=== PATIENT | female | born 1965 | race Caucasian/White ===

== ENCOUNTER → 2016-08-10 | Outpatient (CLI) | payer MEDICARE, MEDICAID ==
[~2016-08-10] MED LIST: AMIO200T7 PO; AMITRIPTYLINE PO; ATOR20TA PO; BUPR150T73 PO; BUPR200T2 PO; BUSP10TA PO; BUSP15TA PO; CARB200T3 PO; CARBAMEZAPINE PO; CARV3.1212 PO; CHLO25TA4 PO; CYCL10TA50 PO; DEXT10TA7 PO; DIGO125T PO; ENOX60SY4 SQ; ESTR2TAB4 PO; FERR325C PO; FLEXERIL PO; FURO-92 PO; LEVO100T8 PO; LEVO112T4 PO; LISI2.5T PO; LISI5TAB PO; LORA-446 PO; LUBI24CA5 PO; LURA60TA PO; MAGN400C PO; MEDR2.5T PO; OMEP-110 PO; POTA20PA PO; POTA20TA14 PO; POTA20TA6 PO; SERT100T PO; SILO8CAP PO; SPIR25TA3 PO; WARF5TAB PO-COUM
== END | disposition home or self-care (01) ==
LOC: LAB 16:16
PROVIDERS: ATTEND Family Medicine
DX: E03.9 Hypothyroidism, unspecified (principal)
CPT/HCPCS: 36415; 84443

== ENCOUNTER → 2016-10-22 | Outpatient (CLI) | payer MEDICARE, MEDICAID ==
[2016-10-22 11:02] LABS: BLOOD UREA NITROGEN 15 mg/dL (7-18)
[2016-10-22 11:12] LABS: ASPARTATE AMINO TRANSFERASE 17 U/L (15-37)
== END | disposition home or self-care (01) ==
LOC: LAB 10:26
PROVIDERS: ATTEND Family Medicine
DX: I50.9 Heart failure, unspecified (principal); E03.9 Hypothyroidism, unspecified
CPT/HCPCS: 36415; 80053; 84443

== ENCOUNTER 2017-01-31 06:53 | Emergency (ER) | payer MEDICAID, MEDICARE ==
[~2017-01-31] VITALS: Ht 157.5 cm; Wt 54.0 kg
[~2017-01-31 06:53] MED LIST changes: -LUBI24CA5 PO; +LUBI24CA7 PO
[2017-01-31] MEDS ORDERED: SODIUM CHLORIDE 0.9% 1,000ML IVBOLUS ONE (07:30)
[2017-01-31 07:46] LABS: HEMATOCRIT 39.7 % (34.6-47.8); HEMOGLOBIN 13.3 g/dL (11.7-16.4); WHITE BLOOD COUNT 8.1 x10^3/uL (3.4-10)
[2017-01-31 07:59] LABS: ASPARTATE AMINO TRANSFERASE 22 U/L (15-37); BLOOD UREA NITROGEN 14 mg/dL (7-18)
[2017-01-31 08:04] LABS: IS PT STATUS REG ER OR PRE ER? YES
[2017-01-31 10:07] VITALS: BP 152/93
== END 2017-01-31 10:51 | disposition home or self-care (01) ==
LOC: ED 07:53
DX: M94.0 Chondrocostal junction syndrome [Tietze] (principal); J98.01 Acute bronchospasm; M54.9 Dorsalgia, unspecified; G89.29 Other chronic pain; E78.5 Hyperlipidemia, unspecified; E03.9 Hypothyroidism, unspecified; I48.91 Unspecified atrial fibrillation; I10 Essential (primary) hypertension; I45.10 Unspecified right bundle-branch block; Z79.01 Long term (current) use of anticoagulants; Z87.891 Personal history of nicotine dependence
CPT/HCPCS: 36415; 71020; 80053; 84484; 85025; 85610; 93005; 99285; J7030

== ENCOUNTER → 2017-06-17 | Outpatient (CLI) | payer MEDICARE ==
[~2017-06-17] MED LIST changes: +ESTR2TAB PO
[2017-06-17 11:58] LABS: MEAN CORPUSCULAR HEMOGLOBIN 31.3 pg (27.0-34.8); MEAN CORPUSCULAR HGB CONC 33.5 g/dL (32.4-35.8); MEAN CORPUSCULAR VOLUME 93.5 fL (80-100); MEAN PLATELET VOLUME 8.9 fL (7.4-10.4); PLATELET COUNT 323 x10^3/uL (130-400); RED BLOOD COUNT 4.04 x10^6/uL (3.82-5.3); RED CELL DISTRIBUTION WIDTH 13.8 % (9.6-15.2)
[2017-06-17 12:10] LABS: ALANINE AMINOTRANSFERASE 15 U/L (12-78); ALBUMIN 3.9 g/dL (3.4-5.0); ANION GAP 8 mmol/L (5-15); CALCIUM 8.5 mg/dL (8.5-10.1); CHLORIDE 108 mmol/L (98-107); CHOLESTEROL, TOTAL 331 mg/dL (140-239); CREATININE 0.69 mg/dL (0.55-1.02)
[2017-06-17 12:24] LABS: ALKALINE PHOSPHATASE 100 U/L (45-117); BILIRUBIN,TOTAL 0.2 mg/dL (0.2-1.0); CHOL/HDL RATIO 4.7; HDL CHOL % 21 % (28-40); HDL CHOLESTEROL (DIRECT) 71 mg/dL (40-60); LDL CHOLESTEROL,CALCULATED 246 mg/dL (54-169); LDL/HDL RATIO 3.5 (0.5-3.0); TOTAL PROTEIN 7.7 g/dL (6.4-8.2); TRIGLYCERIDES 70 mg/dL (50-200); VLDL CHOLESTEROL 14 mg/dL (0-25)
== END ==
LOC: LAB 11:31
PROVIDERS: ATTEND Internal Medicine Cardiovascular Disease
DX: I48.0 Paroxysmal atrial fibrillation (principal); E78.5 Hyperlipidemia, unspecified; Z79.01 Long term (current) use of anticoagulants
CPT/HCPCS: 36415; 80053; 80061; 80162; 85027

== ENCOUNTER 2017-06-19 08:04 | Emergency (ER) | payer MEDICARE ==
[~2017-06-19] VITALS: Ht 157.5 cm; Wt 54.0 kg
[~2017-06-19 08:04] MED LIST changes: -ESTR2TAB PO
[2017-06-19] MEDS ORDERED: SODIUM CHLORIDE FLUSH 10ML SYR IVF ONE (08:30)
[2017-06-19 08:37] LABS: BASOPHILS # (AUTO) 0.09 x10^3/uL (0-0.1); BASOPHILS % (AUTO) 1 % (0-1); EOSINOPHILS # (AUTO) 0.11 x10^3/uL (0-0.4); EOSINOPHILS % (AUTO) 1 % (1-7); LYMPHOCYTES # (AUTO) 1.56 x10^3/uL (1-3.4); LYMPHOCYTES % (AUTO) 17 % (22-44); MD NO; MEAN CORPUSCULAR HEMOGLOBIN 31.3 pg (27.0-34.8); MEAN CORPUSCULAR HGB CONC 33.8 g/dL (32.4-35.8); MEAN CORPUSCULAR VOLUME 92.8 fL (80-100); MEAN PLATELET VOLUME 8.5 fL (7.4-10.4); MONOCYTES # (AUTO) 0.49 x10^3/uL (0.2-0.8); MONOCYTES % (AUTO) 5 % (2-9); NEUTROPHILS % (AUTO) 76 % (42-75); PLATELET COUNT 324 x10^3/uL (130-400); RED BLOOD COUNT 4.13 x10^6/uL (3.82-5.3); RED CELL DISTRIBUTION WIDTH 13.6 % (9.6-15.2)
[2017-06-19] MEDS ORDERED: MORPHINE SULFATE 4 MG/ML, 1ML ONE ×2 (08:37→09:19)
[2017-06-19] MEDS ORDERED: ONDANSETRON 2MG/ML, 2ML ONE (08:37)
[2017-06-19 08:44] LABS: INTERNATIONAL NORMALIZED RATIO 3.18 (0.93-1.1)
[2017-06-19] MEDS: MORPHINE SULFATE 4 MG/ML, 1ML IVPush PRN ×2 (08:46→09:21)
[2017-06-19 08:47] LABS: ANION GAP 6 mmol/L (5-15); CALCIUM 8.6 mg/dL (8.5-10.1); CHLORIDE 108 mmol/L (98-107); CREATININE 0.74 mg/dL (0.55-1.02)
[2017-06-19 08:50] LABS: TROPONIN I < 0.015 ng/mL (0.000-0.045)
[2017-06-19] MEDS ORDERED: ONDANSETRON 2MG/ML, 2ML IVPush ONE (09:00)
[2017-06-19] MEDS ORDERED: ESTR2TAB PO (10:11)
[2017-06-19] MEDS ORDERED: MEDR2.5T PO (10:11)
[2017-06-19] MEDS ORDERED: LORazepam 2 MG/ML, 1ML IVPush ONE (11:30)
[2017-06-19] MEDS ORDERED: LORazepam 2 MG/ML, 1ML ONE (11:45)
[2017-06-19] MEDS ORDERED: KETOROLAC 30 MG/1 ML ONE (12:24)
[2017-06-19 12:27] LABS: TROPONIN I < 0.015 ng/mL (0.000-0.045)
[2017-06-19] MEDS ORDERED: KETOROLAC 30 MG/1 ML IVPush ONE (12:30)
[2017-06-19] MEDS ORDERED: HYDROcodone/APAP 5/325 TABLET PO ONE (13:30)
[2017-06-19] MEDS ORDERED: HYDROcodone/APAP 5/325 TABLET ONE (13:35)
[2017-06-19 13:45] VITALS: BP 136/78
== END 2017-06-19 13:47 | disposition home or self-care (01) ==
LOC: ED 08:57
DX: F43.0 Acute stress reaction (principal); R07.89 Other chest pain; I25.10 Atherosclerotic heart disease of native coronary artery without angina pectoris; I25.2 Old myocardial infarction; E03.9 Hypothyroidism, unspecified; E78.5 Hyperlipidemia, unspecified; F32.9 Major depressive disorder, single episode, unspecified; F41.9 Anxiety disorder, unspecified; I11.0 Hypertensive heart disease with heart failure; I50.9 Heart failure, unspecified; Z95.2 Presence of prosthetic heart valve; Z95.0 Presence of cardiac pacemaker
CPT/HCPCS: 36415; 71045; 80048; 80162; 82040; 84484; 85025; 85610; 85730; 93005; 93306; 96374; 96375; 99285; J1885; J2060; J2405

== ENCOUNTER 2017-11-20 11:04 | Emergency (ER) | payer MEDICARE, MEDICAID ==
[~2017-11-20] VITALS: Ht 154.9 cm; Wt 55.5 kg
[~2017-11-20 11:04] MED LIST changes: +ESTR2TAB PO; -SPIR25TA3 PO; +SPIR25TA5 PO
[2017-11-20] MEDS ORDERED: ONDANSETRON 2MG/ML, 2ML IVPush ONE (11:30)
[2017-11-20 12:17] LABS: BASOPHILS # (AUTO) 0.05 x10^3/uL (0-0.1); BASOPHILS % (AUTO) 1 % (0-1); EOSINOPHILS # (AUTO) 0.08 x10^3/uL (0-0.4); EOSINOPHILS % (AUTO) 1 % (1-7); LYMPHOCYTES # (AUTO) 1.87 x10^3/uL (1-3.4); LYMPHOCYTES % (AUTO) 23 % (22-44); MD NO; MEAN CORPUSCULAR HEMOGLOBIN 31.5 pg (27.0-34.8); MEAN CORPUSCULAR HGB CONC 33.7 g/dL (32.4-35.8); MEAN CORPUSCULAR VOLUME 93.4 fL (80-100); MEAN PLATELET VOLUME 8.4 fL (7.4-10.4); MONOCYTES # (AUTO) 0.57 x10^3/uL (0.2-0.8); MONOCYTES % (AUTO) 7 % (2-9); NEUTROPHILS # (AUTO) 5.43 x10^3/uL (1.8-6.8); NEUTROPHILS % (AUTO) 68 % (42-75); PLATELET COUNT 290 x10^3/uL (130-400); RED BLOOD COUNT 3.92 x10^6/uL (3.82-5.3); RED CELL DISTRIBUTION WIDTH 13.4 % (9.6-15.2)
[2017-11-20] MEDS ORDERED: MORPHINE SULFATE 4 MG/ML, 1ML ONE ×2 (12:28→13:36)
[2017-11-20 12:29] LABS: ALBUMIN 3.5 g/dL (3.4-5.0); ANION GAP 7 mmol/L (5-15); CALCIUM 8.4 mg/dL (8.5-10.1); CHLORIDE 104 mmol/L (98-107)
[2017-11-20] MEDS ORDERED: ONDANSETRON 2MG/ML, 2ML ONE (12:29)
[2017-11-20 12:34] LABS: ALANINE AMINOTRANSFERASE 23 U/L (12-78); ALKALINE PHOSPHATASE 129 U/L (45-117); BILIRUBIN,TOTAL 0.3 mg/dL (0.2-1.0); CREATININE 0.67 mg/dL (0.55-1.02); TOTAL PROTEIN 7.4 g/dL (6.4-8.2); TROPONIN I < 0.015 ng/mL (0.000-0.045)
[2017-11-20] MEDS: MORPHINE SULFATE 4 MG/ML, 1ML IVPush PRN ×2 (12:34→13:38)
[2017-11-20 12:50] VITALS: BP 166/61
[2017-11-20] MEDS ORDERED: BUPR-173 PO (12:58)
[2017-11-20] MEDS ORDERED: CALC-192 PO (12:58)
[2017-11-20] MEDS ORDERED: METOPROLOL TARTRATE 25 MG TABLET ONE (13:22)
[2017-11-20] MEDS ORDERED: METOPROLOL TARTRATE 50 MG TABLET PO ONE (13:30)
== END 2017-11-20 14:23 | disposition home or self-care (01) ==
LOC: ED 14:17
DX: I49.3 Ventricular premature depolarization (principal); R07.89 Other chest pain; I48.91 Unspecified atrial fibrillation; E03.9 Hypothyroidism, unspecified; I10 Essential (primary) hypertension; Z79.01 Long term (current) use of anticoagulants
CPT/HCPCS: 36415; 71045; 80053; 83605; 84484; 85025; 93005; 96374; 96375; 96376; 99285; J2405

== ENCOUNTER 2017-11-27 07:41 | Inpatient (IN) | payer MEDICARE, MEDICAID ==
[~2017-11-27] VITALS: Ht 157.5 cm; Wt 68.8 kg
[~2017-11-27 07:41] MED LIST changes: +BUPR-173 PO; +CALC-192 PO
[2017-11-27] MEDS ORDERED: SODIUM CHLORIDE FLUSH 10ML SYR IVF ONE (08:00)
[2017-11-27] MEDS ORDERED: MORPHINE SULFATE 4 MG/ML, 1ML ONE ×2 (08:18→08:54)
[2017-11-27] MEDS: MORPHINE SULFATE 4 MG/ML, 1ML IVPush PRN ×4 (08:19→20:38)
[2017-11-27 08:28] LABS: BASOPHILS # (AUTO) 0.08 x10^3/uL (0-0.1); BASOPHILS % (AUTO) 1 % (0-1); EOSINOPHILS # (AUTO) 0.13 x10^3/uL (0-0.4); EOSINOPHILS % (AUTO) 2 % (1-7); LYMPHOCYTES # (AUTO) 2.01 x10^3/uL (1-3.4); LYMPHOCYTES % (AUTO) 25 % (22-44); MD NO; MEAN CORPUSCULAR HEMOGLOBIN 30.9 pg (27.0-34.8); MEAN CORPUSCULAR HGB CONC 33.5 g/dL (32.4-35.8); MEAN CORPUSCULAR VOLUME 92.3 fL (80-100); MEAN PLATELET VOLUME 8.6 fL (7.4-10.4); MONOCYTES # (AUTO) 0.51 x10^3/uL (0.2-0.8); MONOCYTES % (AUTO) 6 % (2-9); NEUTROPHILS # (AUTO) 5.27 x10^3/uL (1.8-6.8); NEUTROPHILS % (AUTO) 66 % (42-75); PLATELET COUNT 309 x10^3/uL (130-400); RED BLOOD COUNT 3.78 x10^6/uL (3.82-5.3); RED CELL DISTRIBUTION WIDTH 13.8 % (9.6-15.2)
[2017-11-27] MEDS ORDERED: ONDANSETRON 2MG/ML, 2ML IVPush ONE (08:30)
[2017-11-27 08:38] LABS: INTERNATIONAL NORMALIZED RATIO 4.28 (0.93-1.1); PROTHROMBIN TIME 42.8 Seconds (9.6-11.5)
[2017-11-27 08:39] LABS: ALANINE AMINOTRANSFERASE 18 U/L (12-78); ALBUMIN 3.2 g/dL (3.4-5.0); ANION GAP 4 mmol/L (5-15); CHLORIDE 110 mmol/L (98-107); CREATININE 0.65 mg/dL (0.55-1.02)
[2017-11-27 08:43] LABS: ALKALINE PHOSPHATASE 128 U/L (45-117); TOTAL PROTEIN 6.7 g/dL (6.4-8.2); TROPONIN I < 0.015 ng/mL (0.000-0.045)
[2017-11-27] MEDS ORDERED: ONDANSETRON 2MG/ML, 2ML ONE (08:54)
[2017-11-27 08:57] LABS: BILIRUBIN,TOTAL < 0.1 mg/dL (0.2-1.0)
[2017-11-27] MEDS ORDERED: SODIUM CHLORIDE FLUSH 10ML SYR IVF PRN (10:00)
[2017-11-27] MEDS ORDERED: hydrALAzine 20 MG/ML, 1ML IVPush PRN (10:30)
[2017-11-27] MEDS: PANTOPROZOLE 40MG TABLET PO SCH (10:30)
[2017-11-27] MEDS ORDERED: NITROGLYCERIN 0.4 MG BOTTLE (25 TABS) SL PRN (10:30)
[2017-11-27] MEDS: MEDROXYPROGESTERONE ACETATE 2.5 MG TABLET PO SCH (10:30)
[2017-11-27] MEDS ORDERED: POLYETHYLENE GLYCOL 17 GM PACKET PO PRN (10:30)
[2017-11-27] MEDS ORDERED: TEMAZEPAM 15 MG CAPSULE PO PRN (10:30)
[2017-11-27] MEDS: LUBIPROSTONE 24 MCG CAPSULE PO SCH ×2 (10:30→20:37)
[2017-11-27] MEDS ORDERED: ACETAMINOPHEN 325 MG TABLET PO PRN (10:30)
[2017-11-27 11:03] VITALS: BP 142/97
[2017-11-27] MEDS: HYDROcodone/APAP 5/325 TABLET PO PRN ×2 (11:51→20:35)
[2017-11-27] MEDS: BUPROPION 100 MG TABLET PO SCH (11:51)
[2017-11-27] MEDS: CARVEDILOL 3.125 MG TABLET PO SCH ×2 (11:51→20:37)
[2017-11-27] MEDS: POTASSIUM CHLORIDE 20 MEQ TAB.ER.PRT PO SCH ×2 (11:52→20:31)
[2017-11-27] MEDS: AMIODARONE 200 MG TABLET PO SCH (11:52)
[2017-11-27] MEDS: FUROSEMIDE 40 MG TABLET PO SCH (11:52)
[2017-11-27] MEDS: DIGOXIN 0.125 MG TABLET PO SCH (11:53)
[2017-11-27] MEDS: CARBAMAZEPINE 200 MG TABLET PO SCH ×2 (11:54→20:35)
[2017-11-27] MEDS: ESTRADIOL 2 MG TABLET PO SCH (12:01)
[2017-11-27] MEDS: SPIRONOLACTONE 25 MG TABLET PO SCH (12:01)
[2017-11-27] MEDS: LEVOTHYROXINE 112 MCG TABLET PO SCH (12:01)
[2017-11-27] MEDS: SERTRALINE 100MG TABLET PO SCH ×2 (12:02→20:36)
[2017-11-27] MEDS: ENOXAPARIN 40 MG/0.4 ML SQ SCH (12:04)
[2017-11-27] MEDS: ONDANSETRON 2MG/ML, 2ML IVPush PRN ×2 (15:05→20:37)
[2017-11-27] MEDS: LISINOPRIL 5 MG TABLET PO SCH (20:36)
[2017-11-27] MEDS: LURASIDONE HCL 60 MG HOMEMEDPO SCH (21:00)
[2017-11-27] MEDS ORDERED: MAGNESIUM OXIDE 400 MG TABLET PO SCH (21:00)
[2017-11-27] MEDS ORDERED: FERROUS SULFATE 325 MG TABLET PO SCH (21:00)
[2017-11-27] MEDS ORDERED: CALCIUM/VITAMIN D3 250-125 TABLET PO SCH (21:00)
[2017-11-27 21:12] LABS: TROPONIN I < 0.015 ng/mL (0.000-0.045)
[2017-11-27 21:50] VITALS: BP 123/86
[2017-11-27 22:18] LABS: MICROSCOPIC INDICATED
[2017-11-27 22:25] LABS: CULTURE INDICATED? YES
[2017-11-27 22:58] LABS: AMPHETAMINE SCREEN, URINE Negative (Negative); BARBITURATE SCREEN, URINE Negative (Negative); BENZODIAZEPINE SCREEN, URINE Negative (Negative); CANNABINOID SCREEN, URINE Positive (Negative); COCAINE SCREEN, URINE Negative (Negative); METHADONE SCREEN, URINE Negative (Negative); OPIATE SCREEN, URINE Positive (Negative)
[2017-11-28 00:58] VITALS: BP 104/72
[2017-11-28] MEDS: HYDROcodone/APAP 5/325 TABLET PO PRN ×2 (01:02→03:09)
[2017-11-28] MEDS: ONDANSETRON 2MG/ML, 2ML IVPush PRN ×2 (03:13→10:23)
[2017-11-28 04:42] LABS: INTERNATIONAL NORMALIZED RATIO 4.38 (0.93-1.1); PROTHROMBIN TIME 43.8 Seconds (9.6-11.5)
[2017-11-28 04:43] LABS: TROPONIN I < 0.015 ng/mL (0.000-0.045)
[2017-11-28] MEDS: LEVOTHYROXINE 112 MCG TABLET PO SCH (06:01)
[2017-11-28] MEDS: PANTOPROZOLE 40MG TABLET PO SCH (07:30)
[2017-11-28 07:42] VITALS: BP 113/78
[2017-11-28] MEDS ORDERED: REGADENOSON 0.4 MG/5 ML SYRINGE ONE (08:27)
[2017-11-28] MEDS: LURASIDONE HCL 60 MG HOMEMEDPO SCH (10:17)
[2017-11-28] MEDS: MORPHINE SULFATE 4 MG/ML, 1ML IVPush PRN ×2 (10:23→13:33)
[2017-11-28] MEDS: ENOXAPARIN 40 MG/0.4 ML SQ SCH (10:30)
[2017-11-28 10:43] VITALS: BP 145/87
[2017-11-28] MEDS: SERTRALINE 100MG TABLET PO SCH (10:47)
[2017-11-28] MEDS: POTASSIUM CHLORIDE 20 MEQ TAB.ER.PRT PO SCH ×3 (10:47→16:56)
[2017-11-28] MEDS: FUROSEMIDE 40 MG TABLET PO SCH (10:47)
[2017-11-28] MEDS: DIGOXIN 0.125 MG TABLET PO SCH (10:47)
[2017-11-28] MEDS: LISINOPRIL 5 MG TABLET PO SCH (10:48)
[2017-11-28] MEDS: AMIODARONE 200 MG TABLET PO SCH (10:48)
[2017-11-28] MEDS: MEDROXYPROGESTERONE ACETATE 2.5 MG TABLET PO SCH (10:48)
[2017-11-28] MEDS: BUPROPION 100 MG TABLET PO SCH (10:48)
[2017-11-28] MEDS: SPIRONOLACTONE 25 MG TABLET PO SCH (10:48)
[2017-11-28] MEDS: CARVEDILOL 3.125 MG TABLET PO SCH (10:48)
[2017-11-28] MEDS: CARBAMAZEPINE 200 MG TABLET PO SCH (10:48)
[2017-11-28] MEDS: ESTRADIOL 2 MG TABLET PO SCH (10:49)
[2017-11-28] MEDS: LUBIPROSTONE 24 MCG CAPSULE PO SCH (10:51)
[2017-11-28] MEDS ORDERED: IBUP-1221 PO (12:41)
[2017-11-28] MEDS ORDERED: SIMV40TA PO (12:48)
[2017-11-28] MEDS ORDERED: EZET10TA18 PO (12:54)
[2017-11-28 13:15] VITALS: BP 170/109
== END 2017-11-28 16:38 | disposition home or self-care (01) | DRG 313 ==
LOC: ED 08:04 → SUATTDRO 09:55 → 5SO 10:29 → DCLOUNGE 11-28 16:18
PROVIDERS: ADMIT Internal Medicine; ATTEND Internal Medicine
DX: R07.89 Other chest pain (principal); I50.32 Chronic diastolic (congestive) heart failure; J96.10 Chronic respiratory failure, unspecified whether with hypoxia or hypercapnia; E03.9 Hypothyroidism, unspecified; I11.0 Hypertensive heart disease with heart failure; I27.20 Pulmonary hypertension, unspecified; I48.0 Paroxysmal atrial fibrillation; K21.9 Gastro-esophageal reflux disease without esophagitis; R79.1 Abnormal coagulation profile; M79.7 Fibromyalgia; K58.9 Irritable bowel syndrome, unspecified; G25.81 Restless legs syndrome; E78.5 Hyperlipidemia, unspecified; F41.9 Anxiety disorder, unspecified; F32.9 Major depressive disorder, single episode, unspecified; Z80.3 Family history of malignant neoplasm of breast; Z90.710 Acquired absence of both cervix and uterus; Z79.01 Long term (current) use of anticoagulants; Z95.0 Presence of cardiac pacemaker; Z95.2 Presence of prosthetic heart valve; Z88.1 Allergy status to other antibiotic agents; Z88.2 Allergy status to sulfonamides; Z88.8 Allergy status to other drugs, medicaments and biological substances
CPT/HCPCS: 36415; 71045; 78452; 80053; 80307; 81001; 83880; 84443; 84484; 85025; 85610; 85730; 87086; 93005; 93017; 96374; 96375; 96376; J1650; J2405; J2785; A9502; C9898

== ENCOUNTER 2017-12-02 16:48 | Inpatient (IN) | payer MEDICARE, MEDICAID ==
[~2017-12-02] VITALS: Ht 157.5 cm; Wt 58.4 kg
[~2017-12-02 16:48] MED LIST changes: +EZET10TA18 PO; +IBUP-1221 PO; -POTA20PA PO; +POTA20PA31 PO; -SILO8CAP PO; +SILO8CAP2 PO; +SIMV40TA PO
[2017-12-02] MEDS ORDERED: PLEASE ENTER HEIGHT AND WEIGHT MC SCH (17:30)
[2017-12-02 17:32] VITALS: BP 159/75
[2017-12-02 18:31] LABS: BASOPHILS # (AUTO) 0.06 x10^3/uL (0-0.1); BASOPHILS % (AUTO) 1 % (0-1); EOSINOPHILS # (AUTO) 0.07 x10^3/uL (0-0.4); EOSINOPHILS % (AUTO) 1 % (1-7); LYMPHOCYTES # (AUTO) 2.42 x10^3/uL (1-3.4); LYMPHOCYTES % (AUTO) 23 % (22-44); MD NO; MEAN CORPUSCULAR HEMOGLOBIN 31.6 pg (27.0-34.8); MEAN CORPUSCULAR VOLUME 92.9 fL (80-100); MEAN PLATELET VOLUME 8.4 fL (7.4-10.4); MONOCYTES # (AUTO) 0.72 x10^3/uL (0.2-0.8); MONOCYTES % (AUTO) 7 % (2-9); NEUTROPHILS # (AUTO) 7.49 x10^3/uL (1.8-6.8); NEUTROPHILS % (AUTO) 70 % (42-75); PLATELET COUNT 310 x10^3/uL (130-400); RED BLOOD COUNT 4.19 x10^6/uL (3.82-5.3); RED CELL DISTRIBUTION WIDTH 13.9 % (9.6-15.2)
[2017-12-02 18:37] VITALS: BP 147/94
[2017-12-02] MEDS: ONDANSETRON 2MG/ML, 2ML IV PRN (18:47)
[2017-12-02 18:51] LABS: FREE T4 (FREE THYROXINE) 1.54 ng/dL (0.76-1.46); THYROID STIMULATING HORMONE 1.58 mIU/L (0.358-3.740)
[2017-12-02] MEDS ORDERED: ACETAMINOPHEN 325 MG TABLET PO PRN (19:00)
[2017-12-02] MEDS ORDERED: AMIODARONE 150 MG in DEXTROSE 5% 100 ML IV ONE (19:00)
[2017-12-02] MEDS ORDERED: AMIODARONE 900 MG in DEXTROSE 5% 482 ML IV PRN (19:00)
[2017-12-02] MEDS ORDERED: FILTER 0.22 MICRON IV PRN (19:00)
[2017-12-02] MEDS ORDERED: LORazepam 1MG TABLET PO PRN (19:00)
[2017-12-02 19:43] VITALS: BP 135/80
[2017-12-02] MEDS ORDERED: GLUCAGON 1 MG IM PRN (20:30)
[2017-12-02] MEDS ORDERED: DEXTROSE 50%, 50ML SYRINGE IVPush PRN (20:30)
[2017-12-02] MEDS ORDERED: DEXTROSE 4 GM TAB.CHEW PO PRN (20:30)
[2017-12-02 20:51] LABS: INTERNATIONAL NORMALIZED RATIO 3.64 (0.93-1.1); PROTHROMBIN TIME 36.6 Seconds (9.6-11.5)
[2017-12-02] MEDS: BUSPIRONE 5 MG TABLET PO SCH (20:51)
[2017-12-02] MEDS: SERTRALINE 100MG TABLET PO SCH (20:51)
[2017-12-02] MEDS: CYCLOBENZAPRINE 10 MG TABLET PO SCH (20:51)
[2017-12-02] MEDS: LUBIPROSTONE 24 MCG CAPSULE PO SCH (20:51)
[2017-12-02] MEDS: SODIUM CHLORIDE FLUSH 10ML SYR IVF SCH (20:51)
[2017-12-02] MEDS ORDERED: KETOROLAC 30 MG/1 ML IVPush ONE (21:00)
[2017-12-02] MEDS: DOCUSATE 100 MG CAPSULE PO PRN (21:01)
[2017-12-02] MEDS: MORPHINE SULFATE 4 MG/ML, 1ML IVPush PRN (23:57)
[2017-12-03 00:35] VITALS: BP 125/78
[2017-12-03] MEDS: MORPHINE SULFATE 4 MG/ML, 1ML IVPush PRN ×5 (04:18→21:55)
[2017-12-03] MEDS: ONDANSETRON 2MG/ML, 2ML IV PRN (04:18)
[2017-12-03 05:17] LABS: ANION GAP 5 mmol/L (5-15); CALCIUM 8.6 mg/dL (8.5-10.1); CHLORIDE 105 mmol/L (98-107); CREATININE 0.76 mg/dL (0.55-1.02)
[2017-12-03] MEDS: CARVEDILOL 6.25 MG TABLET PO SCH ×2 (06:34→16:51)
[2017-12-03] MEDS: LEVOTHYROXINE 125 MCG TABLET PO SCH (06:35)
[2017-12-03 07:17] VITALS: BP 121/76
[2017-12-03] MEDS: SPIRONOLACTONE 25 MG TABLET PO SCH (08:14)
[2017-12-03] MEDS: LURASIDONE 20 MG TABLET PO SCH (08:14)
[2017-12-03] MEDS: ESTRADIOL 2 MG TABLET PO SCH (08:14)
[2017-12-03] MEDS: POTASSIUM CHLORIDE 20 MEQ TAB.ER.PRT PO SCH (08:14)
[2017-12-03] MEDS: DIGOXIN 0.125 MG TABLET PO SCH (08:15)
[2017-12-03] MEDS: FUROSEMIDE 40 MG TABLET PO SCH (08:15)
[2017-12-03] MEDS: SERTRALINE 100MG TABLET PO SCH ×2 (08:16→21:55)
[2017-12-03] MEDS: BUPROPION SR 100 MG TABLET PO SCH (08:16)
[2017-12-03] MEDS: MAGNESIUM OXIDE 400 MG TABLET PO SCH (08:22)
[2017-12-03] MEDS: BUSPIRONE 5 MG TABLET PO SCH ×2 (08:22→21:55)
[2017-12-03] MEDS: LUBIPROSTONE 24 MCG CAPSULE PO SCH ×2 (08:23→21:55)
[2017-12-03] MEDS: SODIUM CHLORIDE FLUSH 10ML SYR IVF SCH ×2 (08:23→21:56)
[2017-12-03] MEDS: ONDANSETRON ODT 4 MG PO PRN (13:00)
[2017-12-03 14:15] VITALS: BP 108/71
[2017-12-03] MEDS ORDERED: WARFARIN 5 MG TABLET PO-COUM SCH (18:00)
[2017-12-03 18:34] VITALS: BP 123/80
[2017-12-03] MEDS ORDERED: AMIODARONE 200 MG TABLET PO SCH (21:00)
[2017-12-03] MEDS: LORazepam 1MG TABLET PO SCH (21:54)
[2017-12-03] MEDS: CYCLOBENZAPRINE 10 MG TABLET PO SCH (21:55)
[2017-12-04 00:43] VITALS: BP 103/67
[2017-12-04 04:59] VITALS: BP 107/68
[2017-12-04] MEDS: LEVOTHYROXINE 125 MCG TABLET PO SCH (05:00)
[2017-12-04] MEDS: CARVEDILOL 6.25 MG TABLET PO SCH ×2 (05:01→17:38)
[2017-12-04] MEDS: DOCUSATE 100 MG CAPSULE PO PRN ×2 (05:01→22:04)
[2017-12-04] MEDS: MORPHINE SULFATE 4 MG/ML, 1ML IVPush PRN ×5 (05:01→22:05)
[2017-12-04] MEDS: ONDANSETRON 2MG/ML, 2ML IV PRN ×2 (05:12→17:41)
[2017-12-04 05:37] LABS: INTERNATIONAL NORMALIZED RATIO 1.61 (0.93-1.1); PROTHROMBIN TIME 16.6 Seconds (9.6-11.5)
[2017-12-04 06:47] VITALS: BP 102/68
[2017-12-04] MEDS ORDERED: HEPARIN 5,000 UNITS/ML, 1ML IV ONE (07:30)
[2017-12-04] MEDS ORDERED: HEPARIN 5,000 UNITS/ML, 1ML IV PRN (07:30)
[2017-12-04] MEDS: HEPARIN 25,000 UNITS/500ML PMX 500 ML IV PRN (07:49)
[2017-12-04] MEDS: LUBIPROSTONE 24 MCG CAPSULE PO SCH ×2 (09:00→20:31)
[2017-12-04] MEDS: AMIODARONE 200 MG TABLET PO SCH (09:00)
[2017-12-04] MEDS: ESTRADIOL 2 MG TABLET PO SCH (09:20)
[2017-12-04] MEDS: LURASIDONE 20 MG TABLET PO SCH (09:20)
[2017-12-04] MEDS: SERTRALINE 100MG TABLET PO SCH ×2 (09:21→20:31)
[2017-12-04] MEDS: BUPROPION SR 100 MG TABLET PO SCH (09:21)
[2017-12-04] MEDS: BUSPIRONE 5 MG TABLET PO SCH ×2 (09:21→20:32)
[2017-12-04] MEDS: SPIRONOLACTONE 25 MG TABLET PO SCH (09:21)
[2017-12-04] MEDS: DIGOXIN 0.125 MG TABLET PO SCH (09:21)
[2017-12-04] MEDS: MAGNESIUM OXIDE 400 MG TABLET PO SCH (09:22)
[2017-12-04] MEDS: POTASSIUM CHLORIDE 20 MEQ TAB.ER.PRT PO SCH (09:22)
[2017-12-04] MEDS: FUROSEMIDE 40 MG TABLET PO SCH (09:22)
[2017-12-04] MEDS: SODIUM CHLORIDE FLUSH 10ML SYR IVF SCH ×2 (09:30→21:00)
[2017-12-04] MEDS: ONDANSETRON ODT 4 MG PO PRN (13:07)
[2017-12-04 13:32] VITALS: BP 111/74
[2017-12-04] MEDS ORDERED: WARFARIN 7.5 MG TABLET PO-COUM SCH (18:00)
[2017-12-04 18:46] VITALS: BP 125/82
[2017-12-04] MEDS: LORazepam 1MG TABLET PO SCH (20:31)
[2017-12-04] MEDS: CYCLOBENZAPRINE 10 MG TABLET PO SCH (20:31)
[2017-12-05 02:00] VITALS: BP 108/70
[2017-12-05 02:08] LABS: INTERNATIONAL NORMALIZED RATIO 1.12 (0.93-1.1); PROTHROMBIN TIME 11.6 Seconds (9.6-11.5)
[2017-12-05] MEDS: MORPHINE SULFATE 4 MG/ML, 1ML IVPush PRN ×6 (02:21→21:42)
[2017-12-05] MEDS: ONDANSETRON 2MG/ML, 2ML IV PRN ×4 (02:39→21:38)
[2017-12-05] MEDS: CARVEDILOL 6.25 MG TABLET PO SCH ×2 (05:59→18:12)
[2017-12-05] MEDS: LEVOTHYROXINE 125 MCG TABLET PO SCH (05:59)
[2017-12-05 06:30] VITALS: BP 115/76
[2017-12-05] MEDS: AMIODARONE 200 MG TABLET PO SCH (08:58)
[2017-12-05] MEDS: FUROSEMIDE 40 MG TABLET PO SCH (08:59)
[2017-12-05] MEDS: ESTRADIOL 2 MG TABLET PO SCH (08:59)
[2017-12-05] MEDS: LUBIPROSTONE 24 MCG CAPSULE PO SCH ×2 (08:59→21:37)
[2017-12-05] MEDS: DIGOXIN 0.125 MG TABLET PO SCH (08:59)
[2017-12-05] MEDS: SPIRONOLACTONE 25 MG TABLET PO SCH (08:59)
[2017-12-05] MEDS: SERTRALINE 100MG TABLET PO SCH ×2 (08:59→21:38)
[2017-12-05] MEDS: BUSPIRONE 5 MG TABLET PO SCH ×2 (08:59→21:38)
[2017-12-05] MEDS: MAGNESIUM OXIDE 400 MG TABLET PO SCH (09:00)
[2017-12-05] MEDS: BUPROPION SR 100 MG TABLET PO SCH (09:00)
[2017-12-05] MEDS: POTASSIUM CHLORIDE 20 MEQ TAB.ER.PRT PO SCH (09:00)
[2017-12-05] MEDS: LURASIDONE 20 MG TABLET PO SCH (09:00)
[2017-12-05] MEDS: SODIUM CHLORIDE FLUSH 10ML SYR IVF SCH ×2 (09:05→21:37)
[2017-12-05 10:45] VITALS: BP 108/72
[2017-12-05 12:37] VITALS: BP 133/87
[2017-12-05] MEDS ORDERED: MIDAZOLAM 1 MG/ML, 2ML ONE ×3 (13:03→14:06)
[2017-12-05] MEDS ORDERED: FENTANYL PF 100 MCG/2ML ONE ×2 (13:03→14:06)
[2017-12-05] MEDS ORDERED: CEFAZOLIN PMX 1GM/50ML 50 ML ONE (13:03)
[2017-12-05] MEDS ORDERED: LIDOCAINE 2%, 50ML ONE (13:03)
[2017-12-05] MEDS ORDERED: CEFAZOLIN 1,000 MG ONE (13:04)
[2017-12-05] MEDS ORDERED: DIPHENHYDRAMINE 50 MG/ML, 1ML ONE (13:08)
[2017-12-05] MEDS ORDERED: HOLD MEDICATION MC PRN (15:00)
[2017-12-05] MEDS ORDERED: WARFARIN 2.5 MG TABLET PO-COUM ONE (18:00)
[2017-12-05 18:50] VITALS: BP 134/81
[2017-12-05] MEDS: LORazepam 1MG TABLET PO SCH (21:37)
[2017-12-05] MEDS: CYCLOBENZAPRINE 10 MG TABLET PO SCH (21:38)
[2017-12-05] MEDS: CEFAZOLIN PMX 1GM/50ML 50 ML IVPB SCH (21:51)
[2017-12-06] MEDS: MORPHINE SULFATE 4 MG/ML, 1ML IVPush PRN ×8 (00:42→23:05)
[2017-12-06 03:34] VITALS: BP 124/86
[2017-12-06] MEDS: CEFAZOLIN PMX 1GM/50ML 50 ML IVPB SCH (05:41)
[2017-12-06 05:52] LABS: INTERNATIONAL NORMALIZED RATIO 1.05 (0.93-1.1); PROTHROMBIN TIME 10.8 Seconds (9.6-11.5)
[2017-12-06 05:59] VITALS: BP 138/90
[2017-12-06] MEDS: LEVOTHYROXINE 125 MCG TABLET PO SCH (06:01)
[2017-12-06] MEDS: CARVEDILOL 6.25 MG TABLET PO SCH ×2 (06:01→17:58)
[2017-12-06] MEDS: HEPARIN 25,000 UNITS/500ML PMX 500 ML IV PRN (06:11)
[2017-12-06] MEDS: ONDANSETRON 2MG/ML, 2ML IV PRN ×2 (06:35→20:05)
[2017-12-06 06:55] VITALS: BP 120/79
[2017-12-06 07:45] VITALS: BP 176/71
[2017-12-06] MEDS: SODIUM CHLORIDE FLUSH 10ML SYR IVF SCH ×2 (09:00→20:04)
[2017-12-06] MEDS: FUROSEMIDE 40 MG TABLET PO SCH (09:45)
[2017-12-06] MEDS: LURASIDONE 20 MG TABLET PO SCH (09:45)
[2017-12-06] MEDS: BUSPIRONE 5 MG TABLET PO SCH ×2 (09:45→20:05)
[2017-12-06] MEDS: ESTRADIOL 2 MG TABLET PO SCH (09:45)
[2017-12-06] MEDS: MAGNESIUM OXIDE 400 MG TABLET PO SCH (09:46)
[2017-12-06] MEDS: LUBIPROSTONE 24 MCG CAPSULE PO SCH ×2 (09:46→20:04)
[2017-12-06] MEDS: SERTRALINE 100MG TABLET PO SCH ×2 (09:46→20:05)
[2017-12-06] MEDS: POTASSIUM CHLORIDE 20 MEQ TAB.ER.PRT PO SCH (09:46)
[2017-12-06] MEDS: BUPROPION SR 100 MG TABLET PO SCH (09:46)
[2017-12-06] MEDS: DIGOXIN 0.125 MG TABLET PO SCH (09:46)
[2017-12-06] MEDS: AMIODARONE 200 MG TABLET PO SCH (09:47)
[2017-12-06] MEDS: SPIRONOLACTONE 25 MG TABLET PO SCH (09:52)
[2017-12-06 12:47] VITALS: BP 110/72
[2017-12-06] MEDS ORDERED: morphine SULFATE 10 MG/ML, 1ML ONE (12:48)
[2017-12-06] MEDS: WARFARIN 5 MG TABLET PO-COUM SCH (17:59)
[2017-12-06 18:38] VITALS: BP 111/74
[2017-12-06] MEDS: LORazepam 1MG TABLET PO SCH (20:04)
[2017-12-06] MEDS: CYCLOBENZAPRINE 10 MG TABLET PO SCH (20:05)
[2017-12-07 01:52] VITALS: BP 126/84
[2017-12-07] MEDS: MORPHINE SULFATE 4 MG/ML, 1ML IVPush PRN ×3 (02:08→08:52)
[2017-12-07 05:42] LABS: INTERNATIONAL NORMALIZED RATIO 1.17 (0.93-1.1)
[2017-12-07 06:35] VITALS: BP 129/86
[2017-12-07] MEDS: CARVEDILOL 6.25 MG TABLET PO SCH ×2 (06:37→17:28)
[2017-12-07] MEDS: LEVOTHYROXINE 125 MCG TABLET PO SCH (06:38)
[2017-12-07 07:13] VITALS: BP 123/76
[2017-12-07] MEDS: LURASIDONE 20 MG TABLET PO SCH (08:48)
[2017-12-07] MEDS: BUSPIRONE 5 MG TABLET PO SCH ×2 (08:49→21:11)
[2017-12-07] MEDS: POTASSIUM CHLORIDE 20 MEQ TAB.ER.PRT PO SCH (08:49)
[2017-12-07] MEDS: FUROSEMIDE 40 MG TABLET PO SCH (08:49)
[2017-12-07] MEDS: SERTRALINE 100MG TABLET PO SCH ×2 (08:50→21:12)
[2017-12-07] MEDS: SPIRONOLACTONE 25 MG TABLET PO SCH (08:50)
[2017-12-07] MEDS: LUBIPROSTONE 24 MCG CAPSULE PO SCH ×2 (08:50→21:11)
[2017-12-07] MEDS: DIGOXIN 0.125 MG TABLET PO SCH (08:50)
[2017-12-07] MEDS: ESTRADIOL 2 MG TABLET PO SCH (08:50)
[2017-12-07] MEDS: AMIODARONE 200 MG TABLET PO SCH (08:50)
[2017-12-07] MEDS: BUPROPION SR 100 MG TABLET PO SCH (08:51)
[2017-12-07] MEDS: MAGNESIUM OXIDE 400 MG TABLET PO SCH (08:51)
[2017-12-07] MEDS: SODIUM CHLORIDE FLUSH 10ML SYR IVF SCH ×2 (09:00→21:11)
[2017-12-07] MEDS: MEDROXYPROGESTERONE ACETATE 2.5 MG TABLET PO SCH (11:34)
[2017-12-07] MEDS: ONDANSETRON 2MG/ML, 2ML IV PRN ×2 (12:08→12:09)
[2017-12-07 13:01] VITALS: BP 124/75
[2017-12-07] MEDS: HEPARIN 25,000 UNITS/500ML PMX 500 ML IV PRN (15:22)
[2017-12-07] MEDS: WARFARIN 5 MG TABLET PO-COUM SCH (17:28)
[2017-12-07] MEDS: DOCUSATE 100 MG CAPSULE PO PRN (17:28)
[2017-12-07 19:38] VITALS: BP 101/66
[2017-12-07] MEDS: CYCLOBENZAPRINE 10 MG TABLET PO SCH (21:11)
[2017-12-07] MEDS: LORazepam 1MG TABLET PO SCH (21:12)
[2017-12-08 00:35] VITALS: BP 119/75
[2017-12-08 05:39] LABS: PROTHROMBIN TIME 15.8 Seconds (9.6-11.5)
[2017-12-08 05:40] LABS: INTERNATIONAL NORMALIZED RATIO 1.53 (0.93-1.1)
[2017-12-08 06:09] VITALS: BP 115/68
[2017-12-08] MEDS: CARVEDILOL 6.25 MG TABLET PO SCH ×2 (06:12→17:40)
[2017-12-08] MEDS: LEVOTHYROXINE 125 MCG TABLET PO SCH (06:12)
[2017-12-08 07:08] VITALS: BP 129/71
[2017-12-08] MEDS: SODIUM CHLORIDE FLUSH 10ML SYR IVF SCH ×2 (09:00→20:15)
[2017-12-08] MEDS: POTASSIUM CHLORIDE 20 MEQ TAB.ER.PRT PO SCH ×2 (09:32→20:22)
[2017-12-08] MEDS: LURASIDONE 20 MG TABLET PO SCH (09:32)
[2017-12-08] MEDS: MEDROXYPROGESTERONE ACETATE 2.5 MG TABLET PO SCH (09:32)
[2017-12-08] MEDS: BUPROPION SR 100 MG TABLET PO SCH (09:32)
[2017-12-08] MEDS: SERTRALINE 100MG TABLET PO SCH ×2 (09:32→20:14)
[2017-12-08] MEDS: ESTRADIOL 2 MG TABLET PO SCH (09:32)
[2017-12-08] MEDS: LUBIPROSTONE 24 MCG CAPSULE PO SCH ×2 (09:33→20:14)
[2017-12-08] MEDS: BUSPIRONE 5 MG TABLET PO SCH ×2 (09:33→20:15)
[2017-12-08] MEDS: FUROSEMIDE 40 MG TABLET PO SCH (09:33)
[2017-12-08] MEDS: AMIODARONE 200 MG TABLET PO SCH (09:33)
[2017-12-08] MEDS: SPIRONOLACTONE 25 MG TABLET PO SCH (09:33)
[2017-12-08] MEDS: DIGOXIN 0.125 MG TABLET PO SCH (09:33)
[2017-12-08] MEDS: MAGNESIUM OXIDE 400 MG TABLET PO SCH (09:33)
[2017-12-08] MEDS: DOCUSATE 100 MG CAPSULE PO PRN (10:49)
[2017-12-08] MEDS ORDERED: LORazepam 1MG TABLET PO ONE (11:30)
[2017-12-08] MEDS: DOCUSATE CALCIUM 240 MG CAPSULE PO SCH (13:01)
[2017-12-08 13:50] VITALS: BP 119/69
[2017-12-08] MEDS: WARFARIN 5 MG TABLET PO-COUM SCH (17:41)
[2017-12-08 20:11] VITALS: BP 124/78
[2017-12-08] MEDS: LORazepam 1MG TABLET PO SCH (20:14)
[2017-12-08] MEDS: CYCLOBENZAPRINE 10 MG TABLET PO SCH (20:15)
[2017-12-08 20:47] VITALS: BP 109/69
[2017-12-08] MEDS: HEPARIN 25,000 UNITS/500ML PMX 500 ML IV PRN (23:05)
[2017-12-09 01:05] VITALS: BP 108/68
[2017-12-09 05:14] LABS: INTERNATIONAL NORMALIZED RATIO 2.09 (0.93-1.1); PROTHROMBIN TIME 21.2 Seconds (9.6-11.5)
[2017-12-09 05:15] VITALS: BP 109/68
[2017-12-09] MEDS: CARVEDILOL 6.25 MG TABLET PO SCH (05:16)
[2017-12-09] MEDS: LEVOTHYROXINE 125 MCG TABLET PO SCH (05:16)
[2017-12-09 07:45] VITALS: BP 110/72
[2017-12-09] MEDS ORDERED: ENOXAPARIN 60 MG/0.6 ML SQ SCH (09:00)
[2017-12-09] MEDS: LURASIDONE 20 MG TABLET PO SCH (09:00)
[2017-12-09] MEDS: SODIUM CHLORIDE FLUSH 10ML SYR IVF SCH (09:00)
[2017-12-09] MEDS: FUROSEMIDE 40 MG TABLET PO SCH (09:01)
[2017-12-09] MEDS: LUBIPROSTONE 24 MCG CAPSULE PO SCH (09:01)
[2017-12-09] MEDS: BUSPIRONE 5 MG TABLET PO SCH (09:01)
[2017-12-09] MEDS: AMIODARONE 200 MG TABLET PO SCH (09:01)
[2017-12-09] MEDS: DIGOXIN 0.125 MG TABLET PO SCH (09:01)
[2017-12-09] MEDS: MEDROXYPROGESTERONE ACETATE 2.5 MG TABLET PO SCH (09:01)
[2017-12-09] MEDS: ESTRADIOL 2 MG TABLET PO SCH (09:02)
[2017-12-09] MEDS: SERTRALINE 100MG TABLET PO SCH (09:02)
[2017-12-09] MEDS: SPIRONOLACTONE 25 MG TABLET PO SCH (09:02)
[2017-12-09] MEDS: MAGNESIUM OXIDE 400 MG TABLET PO SCH (09:02)
[2017-12-09] MEDS: DOCUSATE CALCIUM 240 MG CAPSULE PO SCH (09:02)
[2017-12-09] MEDS: BUPROPION SR 100 MG TABLET PO SCH (09:09)
== END 2017-12-09 10:46 | disposition home or self-care (01) | DRG 261 ==
LOC: 5SO 16:48 → DCLOUNGE 12-09 10:20
PROVIDERS: ADMIT Internal Medicine Cardiovascular Disease; ATTEND Internal Medicine Cardiovascular Disease
PROC: 02PA3MZ Removal of Cardiac Lead from Heart, Percutaneous Approach (ICD-10-PCS; principal; 2017-12-05)
PROC: 02HK3JZ Insertion of Pacemaker Lead into Right Ventricle, Percutaneous Approach (ICD-10-PCS; 2017-12-05)
DX: T82.190A Other mechanical complication of cardiac electrode, initial encounter (principal); D68.69 Other thrombophilia; J96.10 Chronic respiratory failure, unspecified whether with hypoxia or hypercapnia; I51.81 Takotsubo syndrome; I50.30 Unspecified diastolic (congestive) heart failure; I27.20 Pulmonary hypertension, unspecified; Z99.81 Dependence on supplemental oxygen; E78.5 Hyperlipidemia, unspecified; F41.9 Anxiety disorder, unspecified; I48.0 Paroxysmal atrial fibrillation; Y71.2 Prosthetic and other implants, materials and accessory cardiovascular devices associated with adverse incidents; Z87.891 Personal history of nicotine dependence; Z79.01 Long term (current) use of anticoagulants; Z95.2 Presence of prosthetic heart valve
CPT/HCPCS: 33216; 33234; 36415; 71045; 80048; 83735; 84439; 84443; 85025; 85520; 85610; 93005; 99156; 99157; C1779; C1892; G0378; J0690; J1644; J1650; J1885; J2250; J2405; J3010; Q0162; J0282; J1200; J7060

== ENCOUNTER 2017-12-20 12:38 | Emergency (ER) | payer MEDICARE, MEDICAID ==
[~2017-12-20] VITALS: Ht 157.5 cm; Wt 54.0 kg
[~2017-12-20 12:38] MED LIST changes: +SILO8CAP PO; -SILO8CAP2 PO
[2017-12-20 13:01] LABS: BASOPHILS # (AUTO) 0.04 x10^3/uL (0-0.1); BASOPHILS % (AUTO) 0 % (0-1); EOSINOPHILS # (AUTO) 0.09 x10^3/uL (0-0.4); EOSINOPHILS % (AUTO) 1 % (1-7); LYMPHOCYTES # (AUTO) 1.28 x10^3/uL (1-3.4); LYMPHOCYTES % (AUTO) 15 % (22-44); MD NO; MEAN CORPUSCULAR HEMOGLOBIN 31.3 pg (27.0-34.8); MEAN CORPUSCULAR HGB CONC 33.6 g/dL (32.4-35.8); MEAN CORPUSCULAR VOLUME 92.9 fL (80-100); MEAN PLATELET VOLUME 8.6 fL (7.4-10.4); MONOCYTES # (AUTO) 0.34 x10^3/uL (0.2-0.8); MONOCYTES % (AUTO) 4 % (2-9); NEUTROPHILS # (AUTO) 6.92 x10^3/uL (1.8-6.8); NEUTROPHILS % (AUTO) 80 % (42-75); PLATELET COUNT 344 x10^3/uL (130-400); RED BLOOD COUNT 4.09 x10^6/uL (3.82-5.3); RED CELL DISTRIBUTION WIDTH 14.6 % (9.6-15.2)
[2017-12-20 13:13] LABS: ALANINE AMINOTRANSFERASE 34 U/L (12-78); ALBUMIN 4.2 g/dL (3.4-5.0); ANION GAP 8 mmol/L (5-15); CALCIUM 9.3 mg/dL (8.5-10.1); CHLORIDE 105 mmol/L (98-107); CREATININE 0.78 mg/dL (0.55-1.02)
[2017-12-20 13:17] LABS: ALKALINE PHOSPHATASE 147 U/L (45-117); BILIRUBIN,TOTAL 0.2 mg/dL (0.2-1.0); TOTAL PROTEIN 8.4 g/dL (6.4-8.2); TROPONIN I < 0.015 ng/mL (0.000-0.045)
[2017-12-20 13:50] LABS: INTERNATIONAL NORMALIZED RATIO 3.09 (0.93-1.1); PROTHROMBIN TIME 31.1 Seconds (9.6-11.5)
[2017-12-20] MEDS ORDERED: ONDANSETRON ODT 4 MG ONE (14:24)
[2017-12-20] MEDS ORDERED: OXYcodone/APAP 5/325MG TABLET ONE (14:25)
[2017-12-20] MEDS ORDERED: ONDANSETRON ODT 4 MG PO ONE (14:30)
[2017-12-20] MEDS ORDERED: OXYcodone/APAP 5/325MG TABLET PO ONE (14:30)
[2017-12-20 17:06] VITALS: BP 114/68
== END 2017-12-20 17:33 | disposition home or self-care (01) ==
LOC: ED 16:34
DX: R07.89 Other chest pain (principal); I11.0 Hypertensive heart disease with heart failure; I50.9 Heart failure, unspecified; I48.91 Unspecified atrial fibrillation; I27.20 Pulmonary hypertension, unspecified; Z87.891 Personal history of nicotine dependence; Z95.0 Presence of cardiac pacemaker; R11.0 Nausea
CPT/HCPCS: 36415; 71045; 80053; 83880; 84484; 85025; 85610; 85730; 93005; 99285; Q0162

== ENCOUNTER → 2018-05-15 | Outpatient (CLI) | payer MEDICARE, MEDICAID ==
[~2018-05-15] MED LIST changes: -SILO8CAP PO; +SILO8CAP2 PO
[2018-05-15 10:24] LABS: BASOPHILS # (AUTO) 0.04 x10^3/uL (0-0.1); BASOPHILS % (AUTO) 1 % (0-1); EOSINOPHILS # (AUTO) 0.08 x10^3/uL (0-0.4); EOSINOPHILS % (AUTO) 1 % (1-7); LYMPHOCYTES # (AUTO) 1.79 x10^3/uL (1-3.4); LYMPHOCYTES % (AUTO) 22 % (22-44); MD NO; MEAN CORPUSCULAR HEMOGLOBIN 30.7 pg (27.0-34.8); MEAN CORPUSCULAR HGB CONC 32.9 g/dL (32.4-35.8); MEAN CORPUSCULAR VOLUME 93.2 fL (80-100); MEAN PLATELET VOLUME 8.6 fL (7.4-10.4); MONOCYTES # (AUTO) 0.47 x10^3/uL (0.2-0.8); MONOCYTES % (AUTO) 6 % (2-9); NEUTROPHILS % (AUTO) 71 % (42-75); PLATELET COUNT 322 x10^3/uL (130-400); RED BLOOD COUNT 4.06 x10^6/uL (3.82-5.3); RED CELL DISTRIBUTION WIDTH 14.4 % (9.6-15.2)
[2018-05-15 10:33] LABS: ALANINE AMINOTRANSFERASE 17 U/L (12-78); ALBUMIN 3.6 g/dL (3.4-5.0); ANION GAP 7 mmol/L (5-15); CALCIUM 8.2 mg/dL (8.5-10.1); CHLORIDE 109 mmol/L (98-107); CHOLESTEROL, TOTAL 345 mg/dL (140-239); CREATININE 0.64 mg/dL (0.55-1.02)
[2018-05-15 10:49] LABS: ALKALINE PHOSPHATASE 137 U/L (45-117); BILIRUBIN,TOTAL 0.2 mg/dL (0.2-1.0); CHOL/HDL RATIO 5.1; HDL CHOL % 20 % (28-40); HDL CHOLESTEROL (DIRECT) 68 mg/dL (40-60); LDL CHOLESTEROL,CALCULATED 258 mg/dL (54-169); LDL/HDL RATIO 3.8 (0.5-3.0); TOTAL PROTEIN 7.3 g/dL (6.4-8.2); TRIGLYCERIDES 95 mg/dL (50-200); VLDL CHOLESTEROL 19 mg/dL (0-25)
== END | disposition home or self-care (01) ==
LOC: LAB 10:01
PROVIDERS: ATTEND Internal Medicine Cardiovascular Disease
DX: I45.10 Unspecified right bundle-branch block (principal); I48.0 Paroxysmal atrial fibrillation; E78.5 Hyperlipidemia, unspecified; E03.9 Hypothyroidism, unspecified
CPT/HCPCS: 36415; 80053; 80061; 80162; 84443; 85025

== ENCOUNTER 2018-06-16 08:32 | Emergency (ER) | payer MEDICARE, MEDICAID, OTHER ==
[~2018-06-16] VITALS: Ht 157.5 cm; Wt 58.0 kg
[2018-06-16] MEDS ORDERED: OXYcodone/APAP 5/325MG TABLET ONE (08:52)
[2018-06-16] MEDS ORDERED: OXYcodone/APAP 5/325MG TABLET PO ONE (09:00)
[2018-06-16] MEDS ORDERED: PLEASE ENTER WEIGHT MC SCH (09:00)
[2018-06-16 09:49] VITALS: BP 138/72
== END 2018-06-16 09:51 | disposition home or self-care (01) ==
LOC: ED 09:20
DX: S43.422A Sprain of left rotator cuff capsule, initial encounter (principal); I10 Essential (primary) hypertension; I48.91 Unspecified atrial fibrillation; E78.5 Hyperlipidemia, unspecified; E03.9 Hypothyroidism, unspecified; Z87.891 Personal history of nicotine dependence; V89.2XXA Person injured in unspecified motor-vehicle accident, traffic, initial encounter; Y93.89 Activity, other specified; Y92.89 Other specified places as the place of occurrence of the external cause; Y99.8 Other external cause status
CPT/HCPCS: 71045; 99283

== ENCOUNTER 2019-02-15 14:40 | Inpatient (IN) | payer MEDICARE, MEDICAID ==
[~2019-02-15] VITALS: Ht 154.9 cm; Wt 54.2 kg
[~2019-02-15 14:40] MED LIST changes: -DIGO125T PO; +DIGO125T85 PO; -EZET10TA18 PO; +EZET10TA70 PO
[2019-02-15] MEDS ORDERED: ASPIRIN 81 MG TABLET CHEW ONE (15:21)
[2019-02-15] MEDS ORDERED: ONDANSETRON 2MG/ML, 2ML ONE (15:21)
[2019-02-15] MEDS ORDERED: LORazepam 2 MG/ML, 1ML ONE (15:22)
[2019-02-15 15:24] LABS: BASOPHILS % (AUTO) 1 % (0-1); EOSINOPHILS # (AUTO) 0.13 x10^3/uL (0-0.4); EOSINOPHILS % (AUTO) 1 % (1-7); LYMPHOCYTES # (AUTO) 2.41 x10^3/uL (1-3.4); LYMPHOCYTES % (AUTO) 18 % (22-44); MD NO; MEAN CORPUSCULAR HEMOGLOBIN 30.9 pg (27.0-34.8); MEAN CORPUSCULAR HGB CONC 32.8 g/dL (32.4-35.8); MEAN CORPUSCULAR VOLUME 94.2 fL (80-100); MEAN PLATELET VOLUME 8.5 fL (7.4-10.4); MONOCYTES # (AUTO) 0.72 x10^3/uL (0.2-0.8); MONOCYTES % (AUTO) 5 % (2-9); NEUTROPHILS # (AUTO) 10.22 x10^3/uL (1.8-6.8); NEUTROPHILS % (AUTO) 75 % (42-75); PLATELET COUNT 298 x10^3/uL (130-400); RED BLOOD COUNT 4.18 x10^6/uL (3.82-5.3)
--- NOTE | 2019-02-15 15:29 | NUR ---
patient given medications; tolerated well. updated plan of care. no noted acute distress. patient verbalized understanding of medications.
[2019-02-15] MEDS ORDERED: LORazepam 2 MG/ML, 1ML IVPush ONE (15:30)
[2019-02-15] MEDS ORDERED: ASPIRIN 81 MG TABLET CHEW PO ONE (15:30)
[2019-02-15 15:32] LABS: ALANINE AMINOTRANSFERASE 30 U/L (12-78); ANION GAP 10 mmol/L (5-15); CALCIUM 8.7 mg/dL (8.5-10.1); CHLORIDE 103 mmol/L (98-107); CREATININE 0.86 mg/dL (0.55-1.02)
[2019-02-15 15:36] LABS: ALKALINE PHOSPHATASE 143 U/L (45-117); BILIRUBIN,TOTAL 0.3 mg/dL (0.2-1.0); TOTAL PROTEIN 7.8 g/dL (6.4-8.2)
[2019-02-15 15:50] LABS: INTERNATIONAL NORMALIZED RATIO 2.08 (0.93-1.1); PROTHROMBIN TIME 21.2 Seconds (9.6-11.5)
--- NOTE | 2019-02-15 16:17 | NUR ---
patient resting in bed, no noted acute distress. patient's anxiety has been relieved with ativan. will continue to monitor. ekg completed.
[2019-02-15] MEDS ORDERED: NITROGLYCERIN SINGLE TAB 0.4 MG SL ONE ×2 (16:27→16:29)
[2019-02-15] MEDS ORDERED: FUROSEMIDE 20 MG/2 ML ONE (16:28)
[2019-02-15] MEDS ORDERED: MORPHINE SULFATE 4 MG/ML, 1ML ONE (16:28)
[2019-02-15] MEDS ORDERED: NITROGLYCERIN OINT 2%, 1GM TP ONE ×2 (16:28→16:30)
[2019-02-15] MEDS ORDERED: MORPHINE SULFATE 4 MG/ML, 1ML IVPush PRN (16:30)
[2019-02-15] MEDS ORDERED: FUROSEMIDE 20 MG/2 ML IV ONE ×2 (16:30→21:00)
[2019-02-15] MEDS: NITROGLYCERIN SINGLE TAB 0.4 MG SL PRN ×2 (16:32→16:47)
--- NOTE | 2019-02-15 16:51 | NUR ---
patient updated on plan of care. patient tolerating interventions well. patient given wet cool wash cloths per request. patient placed on oxygen therapy due to desaturation after pain medication administration.
--- NOTE | 2019-02-15 16:51 | NUR ---
admitting md at bedside with patient for admitting interview.
--- NOTE | 2019-02-15 17:36 | NUR ---
SPOKE WITH ADMITTING PHYSICIAN, HE HAS CALLED CARDIOLOGY FOR APPROVAL FOR ECHO. called report to SALO Bergeron, PASSED INFORMATION REGARDING ECHO TONIGHT OR TOMORROW; AWAITING CARDIOLOGY APPROVAL FOR ECHO TO BE READ TONIGHT OR ECHO TO BE DONE IN THE MORNING. SALO BERGERON VERBALIZED UNDERSTANDING OF FOLLOW-UP PHONE NUMBER FOR CARDS GIVEN.
--- NOTE | 2019-02-15 17:59 | NUR ---
PATIENT RESTING IN BED, UPDATED ON PLAN OF CARE. NO NOTED NEEDS AT THIS TIME. VITAL SIGNS STABLE, WILL CONTINUE TO MONITOR UNTIL TRANSPORT.
[2019-02-15 18:28] VITALS: BP 125/91
[2019-02-15] MEDS ORDERED: HEPARIN 5,000 UNITS/ML, 1ML IV ONE (18:30)
[2019-02-15] MEDS ORDERED: HEPARIN 25,000 UNITS/500ML PMX 500 ML IV PRN (18:30)
[2019-02-15] MEDS ORDERED: HEPARIN 5,000 UNITS/ML, 1ML IV PRN (18:30)
[2019-02-15 19:43] VITALS: BP 116/88
[2019-02-15] MEDS: ONDANSETRON 2MG/ML, 2ML IVPush PRN (19:51)
[2019-02-15 20:12] VITALS: BP 96/75
[2019-02-15] MEDS ORDERED: POTASSIUM CHLORIDE 20 MEQ PACKET PO SCH (21:00)
[2019-02-15] MEDS: CARVEDILOL 3.125 MG TABLET PO SCH (21:00)
[2019-02-15] MEDS: LURASIDONE 20 MG TABLET PO SCH (21:00)
[2019-02-15] MEDS: ATORVASTATIN 40 MG TABLET PO SCH (21:00)
[2019-02-15] MEDS: CARBAMAZEPINE 200 MG TABLET PO SCH (21:00)
[2019-02-15] MEDS: SERTRALINE 100MG TABLET PO SCH (21:00)
[2019-02-15] MEDS: LUBIPROSTONE 24 MCG CAPSULE PO SCH (21:00)
[2019-02-15] MEDS: BUSPIRONE 5 MG TABLET PO SCH (21:00)
[2019-02-15] MEDS: CYCLOBENZAPRINE 10 MG TABLET PO SCH (21:00)
[2019-02-15] MEDS: MORPHINE SULFATE 4 MG/ML, 1ML IVPush PRN (22:30)
[2019-02-15 22:55] VITALS: BP 132/99
[2019-02-15] MEDS ORDERED: hydrALAzine 20 MG/ML, 1ML IV PRN (23:30)
[2019-02-15] MEDS ORDERED: FUROSEMIDE 40 MG/4 ML IV ONE (23:30)
[2019-02-16] MEDS: ONDANSETRON ODT 4 MG PO PRN (00:13)
[2019-02-16] MEDS: MORPHINE SULFATE 4 MG/ML, 1ML IVPush PRN ×3 (01:35→17:53)
[2019-02-16 02:04] LABS: MEAN CORPUSCULAR HEMOGLOBIN 31.2 pg (27.0-34.8); MEAN CORPUSCULAR HGB CONC 32.5 g/dL (32.4-35.8); MEAN CORPUSCULAR VOLUME 95.8 fL (80-100); MEAN PLATELET VOLUME 8.9 fL (7.4-10.4); PLATELET COUNT 289 x10^3/uL (130-400); RED BLOOD COUNT 4.82 x10^6/uL (3.82-5.3); RED CELL DISTRIBUTION WIDTH 14.1 % (9.6-15.2)
[2019-02-16 02:08] LABS: INTERNATIONAL NORMALIZED RATIO 2.86 (0.93-1.1); PROTHROMBIN TIME 28.8 Seconds (9.6-11.5)
[2019-02-16 02:11] LABS: ANION GAP 9 mmol/L (5-15); CALCIUM 8.3 mg/dL (8.5-10.1); CHLORIDE 103 mmol/L (98-107); CHOLESTEROL, TOTAL 402 mg/dL (140-239); CREATININE 1.07 mg/dL (0.55-1.02); TRIGLYCERIDES 159 mg/dL (50-200); VLDL CHOLESTEROL 32 mg/dL (0-25)
[2019-02-16 02:15] LABS: CHOL/HDL RATIO 4.3; HDL CHOL % 23 % (28-40); HDL CHOLESTEROL (DIRECT) 94 mg/dL (40-60); LDL CHOLESTEROL,CALCULATED 276 mg/dL (54-169); LDL/HDL RATIO 2.9 (0.5-3.0)
[2019-02-16 02:20] LABS: BASOPHILS # (AUTO) 0.01 x10^3/uL (0-0.1); BASOPHILS % (AUTO) 0 % (0-1); EOSINOPHILS % (AUTO) 0 % (1-7); LYMPHOCYTES # (AUTO) 1.37 x10^3/uL (1-3.4); LYMPHOCYTES % (AUTO) 7 % (22-44); MD SCAN; MONOCYTES # (AUTO) 0.86 x10^3/uL (0.2-0.8); MONOCYTES % (AUTO) 4 % (2-9); NEUTROPHILS # (AUTO) 18.15 x10^3/uL (1.8-6.8); NEUTROPHILS % (AUTO) 89 % (42-75)
[2019-02-16 02:28] LABS: MICROSCOPIC NOT IND
[2019-02-16] MEDS: ONDANSETRON 2MG/ML, 2ML IVPush PRN ×2 (04:27→15:00)
[2019-02-16] MEDS: LEVOTHYROXINE 125 MCG TABLET PO SCH (06:00)
[2019-02-16] MEDS ORDERED: OMNIPAQUE 350 MG/ML, 100ML BOTTLE ONE (06:10)
[2019-02-16] MEDS: FUROSEMIDE 20 MG/2 ML IV SCH ×2 (08:36→17:27)
[2019-02-16] MEDS: POTASSIUM CHLORIDE 20 MEQ TAB.ER.PRT PO SCH (08:36)
[2019-02-16] MEDS: CARVEDILOL 3.125 MG TABLET PO SCH ×2 (08:37→19:54)
[2019-02-16] MEDS: SPIRONOLACTONE 25 MG TABLET PO SCH (08:37)
[2019-02-16] MEDS: SERTRALINE 100MG TABLET PO SCH ×2 (08:37→19:54)
[2019-02-16] MEDS: DIGOXIN 0.125 MG TABLET PO SCH (08:37)
[2019-02-16] MEDS: BUSPIRONE 5 MG TABLET PO SCH ×2 (08:38→19:54)
[2019-02-16] MEDS: LISINOPRIL 5 MG TABLET PO SCH (08:38)
[2019-02-16] MEDS: AMIODARONE 200 MG TABLET PO SCH (08:39)
[2019-02-16] MEDS: BUPROPION SR 100 MG TABLET PO SCH (08:42)
[2019-02-16] MEDS: LUBIPROSTONE 24 MCG CAPSULE PO SCH ×2 (08:43→20:48)
[2019-02-16] MEDS: CARBAMAZEPINE 200 MG TABLET PO SCH ×2 (08:43→19:54)
[2019-02-16] MEDS ORDERED: FUROSEMIDE 40 MG TABLET PO SCH (09:00)
[2019-02-16] MEDS ORDERED: ALBUTEROL SULFATE 2.5 MG/3 ML ONE (11:31)
[2019-02-16] MEDS: ALBUTEROL SULFATE 2.5 MG/3 ML NPPB SCH ×3 (15:37→22:32)
[2019-02-16] MEDS: METOLAZONE 5 MG TABLET PO SCH (17:27)
[2019-02-16] MEDS: LORazepam 1MG TABLET PO PRN ×2 (17:31→19:55)
[2019-02-16] MEDS ORDERED: WARFARIN 5 MG TABLET PO-COUM ONE ×2 (18:00)
[2019-02-16] MEDS: ATORVASTATIN 40 MG TABLET PO SCH ×2 (19:54→19:57)
[2019-02-16] MEDS: LURASIDONE 20 MG TABLET PO SCH (19:54)
[2019-02-16] MEDS: CYCLOBENZAPRINE 10 MG TABLET PO SCH (19:55)
[2019-02-17] MEDS: MORPHINE SULFATE 4 MG/ML, 1ML IVPush PRN ×2 (00:43→04:29)
[2019-02-17] MEDS: LORazepam 1MG TABLET PO PRN ×3 (00:43→20:31)
[2019-02-17] MEDS: ONDANSETRON 2MG/ML, 2ML IVPush PRN ×2 (00:44→09:27)
[2019-02-17] MEDS: ALBUTEROL SULFATE 2.5 MG/3 ML NPPB SCH ×6 (02:24→22:15)
[2019-02-17 04:39] LABS: BASOPHILS # (AUTO) 0.02 x10^3/uL (0-0.1); BASOPHILS % (AUTO) 0 % (0-1); EOSINOPHILS # (AUTO) 0.02 x10^3/uL (0-0.4); EOSINOPHILS % (AUTO) 0 % (1-7); LYMPHOCYTES # (AUTO) 1.26 x10^3/uL (1-3.4); LYMPHOCYTES % (AUTO) 8 % (22-44); MD NO; MEAN CORPUSCULAR HEMOGLOBIN 31.2 pg (27.0-34.8); MEAN CORPUSCULAR HGB CONC 32.7 g/dL (32.4-35.8); MEAN CORPUSCULAR VOLUME 95.4 fL (80-100); MEAN PLATELET VOLUME 8.9 fL (7.4-10.4); MONOCYTES # (AUTO) 0.26 x10^3/uL (0.2-0.8); MONOCYTES % (AUTO) 2 % (2-9); NEUTROPHILS # (AUTO) 14.22 x10^3/uL (1.8-6.8); NEUTROPHILS % (AUTO) 90 % (42-75); PLATELET COUNT 270 x10^3/uL (130-400); RED BLOOD COUNT 4.66 x10^6/uL (3.82-5.3); RED CELL DISTRIBUTION WIDTH 14.1 % (9.6-15.2)
[2019-02-17 04:42] LABS: INTERNATIONAL NORMALIZED RATIO 1.96 (0.93-1.1); PROTHROMBIN TIME 20.1 Seconds (9.6-11.5)
[2019-02-17 04:46] LABS: ANION GAP 8 mmol/L (5-15); CALCIUM 8.1 mg/dL (8.5-10.1); CHLORIDE 96 mmol/L (98-107); CREATININE 0.74 mg/dL (0.55-1.02)
[2019-02-17 04:50] LABS: TROPONIN I 0.779 ng/mL (0.000-0.045)
[2019-02-17] MEDS: LEVOTHYROXINE 125 MCG TABLET PO SCH (06:03)
[2019-02-17] MEDS: POTASSIUM CHLORIDE 20 MEQ TAB.ER.PRT PO SCH ×3 (07:31→17:44)
[2019-02-17] MEDS ORDERED: KETOROLAC 30 MG/1 ML IM PRN (08:00)
[2019-02-17] MEDS: CARVEDILOL 3.125 MG TABLET PO SCH ×2 (09:00→20:26)
[2019-02-17] MEDS: CARBAMAZEPINE 200 MG TABLET PO SCH ×2 (09:00→20:26)
[2019-02-17] MEDS: FUROSEMIDE 20 MG/2 ML IV SCH ×2 (09:00→17:00)
[2019-02-17] MEDS: DIGOXIN 0.125 MG TABLET PO SCH (09:00)
[2019-02-17] MEDS: LISINOPRIL 5 MG TABLET PO SCH (09:03)
[2019-02-17] MEDS: METOLAZONE 5 MG TABLET PO SCH ×2 (09:03→17:00)
[2019-02-17] MEDS: SPIRONOLACTONE 25 MG TABLET PO SCH (09:04)
[2019-02-17] MEDS: AMIODARONE 200 MG TABLET PO SCH (09:04)
[2019-02-17] MEDS: SERTRALINE 100MG TABLET PO SCH ×2 (09:05→20:26)
[2019-02-17] MEDS: BUSPIRONE 5 MG TABLET PO SCH ×2 (09:05→20:26)
[2019-02-17] MEDS: ENOXAPARIN 60 MG/0.6 ML SQ SCH ×2 (09:06→20:24)
[2019-02-17] MEDS: BUPROPION SR 100 MG TABLET PO SCH (09:12)
[2019-02-17] MEDS: LUBIPROSTONE 24 MCG CAPSULE PO SCH ×2 (09:12→20:25)
[2019-02-17] MEDS: KETOROLAC 30 MG/1 ML IVPush PRN (17:09)
[2019-02-17] MEDS ORDERED: SODIUM CHLORIDE 0.9%, 250ML IVBOLUS ONE ×2 (17:30→20:30)
[2019-02-17] MEDS ORDERED: WARFARIN 2 MG TABLET PO-COUM ONE ×2 (17:39→17:53)
[2019-02-17] MEDS ORDERED: WARFARIN 3 MG TABLET PO-COUM ONE (18:00)
[2019-02-17] MEDS: CYCLOBENZAPRINE 10 MG TABLET PO SCH (20:25)
[2019-02-17] MEDS: LURASIDONE 20 MG TABLET PO SCH (20:25)
[2019-02-17] MEDS: ATORVASTATIN 40 MG TABLET PO SCH (20:26)
[2019-02-17] MEDS: SODIUM CHLORIDE NASAL SPRAY 45ML BOTTLE NAS PRN (20:40)
[2019-02-18] MEDS: KETOROLAC 30 MG/1 ML IVPush PRN ×3 (02:23→20:41)
[2019-02-18] MEDS: ALBUTEROL SULFATE 2.5 MG/3 ML NPPB SCH ×5 (02:27→20:40)
[2019-02-18 04:34] LABS: INTERNATIONAL NORMALIZED RATIO 2.79 (0.93-1.1); PROTHROMBIN TIME 28.2 Seconds (9.6-11.5)
[2019-02-18] MEDS: LORazepam 1MG TABLET PO PRN ×2 (06:15→20:44)
[2019-02-18] MEDS: LEVOTHYROXINE 125 MCG TABLET PO SCH (06:15)
[2019-02-18] MEDS: ACETAMINOPHEN 325 MG TABLET PO PRN ×2 (06:16→11:50)
[2019-02-18] MEDS: CEFTRIAXONE PMX 1GM/50ML 50 ML IV SCH (07:56)
[2019-02-18] MEDS: AZITHROMYCIN 500 MG in SODIUM CHLORIDE 0.9% 250 ML IV SCH (07:56)
[2019-02-18] MEDS: CARBAMAZEPINE 200 MG TABLET PO SCH ×2 (08:32→20:42)
[2019-02-18] MEDS: SERTRALINE 100MG TABLET PO SCH ×2 (08:32→20:41)
[2019-02-18] MEDS: POTASSIUM CHLORIDE 20 MEQ TAB.ER.PRT PO SCH ×2 (08:33→17:30)
[2019-02-18] MEDS: AMIODARONE 200 MG TABLET PO SCH (08:33)
[2019-02-18] MEDS: BUSPIRONE 5 MG TABLET PO SCH ×2 (08:33→20:42)
[2019-02-18] MEDS: SPIRONOLACTONE 25 MG TABLET PO SCH (08:33)
[2019-02-18] MEDS: CARVEDILOL 3.125 MG TABLET PO SCH ×2 (08:34→20:42)
[2019-02-18] MEDS: DIGOXIN 0.125 MG TABLET PO SCH (08:34)
[2019-02-18] MEDS: LUBIPROSTONE 24 MCG CAPSULE PO SCH ×2 (08:35→20:39)
[2019-02-18] MEDS: BUPROPION SR 100 MG TABLET PO SCH (08:35)
[2019-02-18] MEDS: LISINOPRIL 5 MG TABLET PO SCH (08:35)
[2019-02-18 09:48] LABS: ALBUMIN 2.7 g/dL (3.4-5.0); CHLORIDE 97 mmol/L (98-107)
[2019-02-18 09:53] LABS: ALANINE AMINOTRANSFERASE 19 U/L (12-78); ALKALINE PHOSPHATASE 120 U/L (45-117); ANION GAP 5 mmol/L (5-15); BILIRUBIN,TOTAL 0.6 mg/dL (0.2-1.0); CALCIUM 8.5 mg/dL (8.5-10.1); TOTAL PROTEIN 6.1 g/dL (6.4-8.2)
[2019-02-18 11:42] VITALS: BP 93/64
[2019-02-18 14:45] VITALS: BP 91/58
[2019-02-18] MEDS: SODIUM CHLORIDE NASAL SPRAY 45ML BOTTLE NAS PRN (17:30)
[2019-02-18] MEDS ORDERED: WARFARIN 5 MG TABLET PO-COUM ONE (18:00)
[2019-02-18 20:33] VITALS: BP 97/64
[2019-02-18] MEDS: ATORVASTATIN 40 MG TABLET PO SCH (20:40)
[2019-02-18] MEDS: CYCLOBENZAPRINE 10 MG TABLET PO SCH (20:40)
[2019-02-18] MEDS: LURASIDONE 20 MG TABLET PO SCH (20:42)
[2019-02-19 03:59] VITALS: BP 96/61
[2019-02-19] MEDS: LEVOTHYROXINE 125 MCG TABLET PO SCH (05:20)
[2019-02-19] MEDS: ALBUTEROL SULFATE 2.5 MG/3 ML NPPB SCH ×4 (07:00→21:10)
[2019-02-19 08:35] LABS: INTERNATIONAL NORMALIZED RATIO 7.16 (0.93-1.1); PROTHROMBIN TIME 69.7 Seconds (9.6-11.5)
[2019-02-19 08:39] VITALS: BP 100/65
[2019-02-19] MEDS: BUSPIRONE 5 MG TABLET PO SCH ×2 (08:45→19:59)
[2019-02-19] MEDS: SERTRALINE 100MG TABLET PO SCH ×2 (08:45→19:54)
[2019-02-19] MEDS: SPIRONOLACTONE 25 MG TABLET PO SCH (08:45)
[2019-02-19] MEDS: CARVEDILOL 3.125 MG TABLET PO SCH ×2 (08:45→19:58)
[2019-02-19] MEDS: BUPROPION SR 100 MG TABLET PO SCH (08:45)
[2019-02-19] MEDS: LUBIPROSTONE 24 MCG CAPSULE PO SCH ×2 (08:46→19:53)
[2019-02-19] MEDS: DIGOXIN 0.125 MG TABLET PO SCH (08:46)
[2019-02-19] MEDS: LISINOPRIL 5 MG TABLET PO SCH (08:46)
[2019-02-19] MEDS: CARBAMAZEPINE 200 MG TABLET PO SCH ×2 (08:46→19:55)
[2019-02-19] MEDS: AMIODARONE 200 MG TABLET PO SCH (08:46)
[2019-02-19] MEDS: SODIUM CHLORIDE NASAL SPRAY 45ML BOTTLE NAS PRN (08:47)
[2019-02-19] MEDS: ONDANSETRON ODT 4 MG PO PRN (09:05)
[2019-02-19] MEDS: KETOROLAC 30 MG/1 ML IVPush PRN ×2 (09:05→21:07)
[2019-02-19] MEDS: CEFTRIAXONE PMX 1GM/50ML 50 ML IV SCH (09:05)
[2019-02-19] MEDS: WARFARIN MECH. VALVE PROTOCOL 2.5 to 3.5 XX SCH (09:05)
[2019-02-19 09:19] LABS: ANION GAP 4 mmol/L (5-15); CALCIUM 8.2 mg/dL (8.5-10.1); CHLORIDE 101 mmol/L (98-107); CREATININE 0.53 mg/dL (0.55-1.02)
[2019-02-19] MEDS: AZITHROMYCIN 500 MG in SODIUM CHLORIDE 0.9% 250 ML IV SCH (10:14)
[2019-02-19] MEDS: LORazepam 1MG TABLET PO PRN ×2 (10:23→21:07)
[2019-02-19 13:04] VITALS: BP 98/65
[2019-02-19] MEDS ORDERED: HOLD COUMADIN MC PRN (14:00)
[2019-02-19 18:52] VITALS: BP 109/73
[2019-02-19] MEDS: LURASIDONE 20 MG TABLET PO SCH (19:53)
[2019-02-19] MEDS: ATORVASTATIN 40 MG TABLET PO SCH (19:54)
[2019-02-19] MEDS: CYCLOBENZAPRINE 10 MG TABLET PO SCH (19:54)
[2019-02-19] MEDS: CEFDINIR 300 MG CAPSULE PO SCH (19:54)
[2019-02-20 00:48] VITALS: BP 99/63
[2019-02-20 05:41] LABS: INTERNATIONAL NORMALIZED RATIO 5.26 (0.93-1.1)
[2019-02-20 05:43] LABS: PROTHROMBIN TIME 51.8 Seconds (9.6-11.5)
[2019-02-20] MEDS: LEVOTHYROXINE 125 MCG TABLET PO SCH (05:54)
[2019-02-20] MEDS: ALBUTEROL SULFATE 2.5 MG/3 ML NPPB SCH ×3 (07:00→14:14)
[2019-02-20] MEDS ORDERED: HOLD COUMADIN MC PRN (08:00)
[2019-02-20] MEDS ORDERED: AZITHROMYCIN 500 MG TABLET PO SCH (09:00)
[2019-02-20] MEDS: WARFARIN MECH. VALVE PROTOCOL 2.5 to 3.5 XX SCH (09:00)
[2019-02-20] MEDS ORDERED: BISACODYL 10 MG SUPP PR PRN (09:30)
[2019-02-20] MEDS ORDERED: POLYETHYLENE GLYCOL 17 GM PACKET PO PRN (09:30)
[2019-02-20] MEDS ORDERED: DOCUSATE 100 MG CAPSULE PO PRN (09:30)
[2019-02-20 09:33] VITALS: BP 109/67
[2019-02-20] MEDS ORDERED: MAGNESIUM CITRATE 300ML ORAL SOL ONE (09:34)
[2019-02-20] MEDS: AMIODARONE 200 MG TABLET PO SCH (09:35)
[2019-02-20] MEDS: BUPROPION SR 100 MG TABLET PO SCH (09:35)
[2019-02-20] MEDS: LORazepam 1MG TABLET PO PRN (09:35)
[2019-02-20] MEDS: CEFDINIR 300 MG CAPSULE PO SCH (09:35)
[2019-02-20] MEDS: SERTRALINE 100MG TABLET PO SCH (09:36)
[2019-02-20] MEDS: CARVEDILOL 3.125 MG TABLET PO SCH (09:36)
[2019-02-20] MEDS: DIGOXIN 0.125 MG TABLET PO SCH (09:36)
[2019-02-20] MEDS: SPIRONOLACTONE 25 MG TABLET PO SCH (09:36)
[2019-02-20] MEDS: LUBIPROSTONE 24 MCG CAPSULE PO SCH (09:36)
[2019-02-20] MEDS: BUSPIRONE 5 MG TABLET PO SCH (09:36)
[2019-02-20] MEDS: LISINOPRIL 5 MG TABLET PO SCH (09:37)
[2019-02-20] MEDS: CARBAMAZEPINE 200 MG TABLET PO SCH (09:37)
[2019-02-20] MEDS: MAGNESIUM CITRATE 300ML ORAL SOL PO PRN ×2 (09:50→12:30)
[2019-02-20] MEDS: SODIUM CHLORIDE NASAL SPRAY 45ML BOTTLE NAS PRN (09:52)
[2019-02-20 13:19] VITALS: BP 120/75
[2019-02-20] MEDS ORDERED: CEFD300C37 PO (13:27)
[2019-02-20] MEDS ORDERED: AZIT500T10 PO (13:27)
[2019-02-20] MEDS ORDERED: ATOR40TA78 PO (13:27)
[2019-02-20] MEDS ORDERED: FLU VACC QS2019-20 36MOS UP/PF 0.5 ML IM-VACC ONE (15:00)
== END 2019-02-20 16:40 | disposition home or self-care (01) | DRG 871 ==
LOC: ED 16:30 → EDIP 16:31 → ED 16:40 → 5SO 18:14 → CCU 21:16 → 5SO 02-18 10:38 → DCLOUNGE 02-20 16:32
PROVIDERS: ADMIT Internal Medicine; ATTEND Internal Medicine
DX: A41.9 Sepsis, unspecified organism (principal); I21.4 Non-ST elevation (NSTEMI) myocardial infarction; J18.9 Pneumonia, unspecified organism; J96.01 Acute respiratory failure with hypoxia; I50.43 Acute on chronic combined systolic (congestive) and diastolic (congestive) heart failure; I51.81 Takotsubo syndrome; D68.69 Other thrombophilia; E87.1 Hypo-osmolality and hyponatremia; J44.0 Chronic obstructive pulmonary disease with (acute) lower respiratory infection; I42.9 Cardiomyopathy, unspecified; Z88.2 Allergy status to sulfonamides; Z88.8 Allergy status to other drugs, medicaments and biological substances; E03.9 Hypothyroidism, unspecified; E78.5 Hyperlipidemia, unspecified; E87.6 Hypokalemia; F32.9 Major depressive disorder, single episode, unspecified; F41.1 Generalized anxiety disorder; F43.10 Post-traumatic stress disorder, unspecified; X58.XXXA Exposure to other specified factors, initial encounter; Y93.89 Activity, other specified; Y92.89 Other specified places as the place of occurrence of the external cause; Y99.8 Other external cause status; G25.81 Restless legs syndrome; I27.20 Pulmonary hypertension, unspecified; I48.0 Paroxysmal atrial fibrillation; K58.9 Irritable bowel syndrome, unspecified; Z79.01 Long term (current) use of anticoagulants; Z87.891 Personal history of nicotine dependence; Z95.0 Presence of cardiac pacemaker; Z95.2 Presence of prosthetic heart valve; Z99.81 Dependence on supplemental oxygen; Z79.899 Other long term (current) drug therapy
CPT/HCPCS: 36415; 36600; 71045; 71275; 80048; 80053; 80061; 81003; 82803; 82962; 83036; 83735; 83880; 84484; 85014; 85018; 85025; 85520; 85610; 87081; 90686; 93005; 93306; 93308; 93325; 94640; 96374; 96375; G0378; J0456; J0696; J1644; J1650; J1885; J1940; J2405; J7613; Q0162; Q9967; J0360; J2060; J2270; J7050

== ENCOUNTER 2019-03-04 10:20 | Inpatient (IN) | payer MEDICARE, MEDICAID ==
[~2019-03-04] VITALS: Ht 154.9 cm; Wt 51.5 kg
[~2019-03-04 10:20] MED LIST changes: +ATOR40TA78 PO; +AZIT500T10 PO; +CEFD300C37 PO; +DIGO125T PO; -DIGO125T85 PO
[2019-03-04] MEDS ORDERED: WARF5TAB PO (10:40)
[2019-03-04] MEDS ORDERED: POTA20TA6 PO (10:45)
[2019-03-04] MEDS ORDERED: ESTR2TAB PO (10:45)
[2019-03-04] MEDS ORDERED: FURO-92 PO (10:45)
--- NOTE | 2019-03-04 10:55 | NUR ---
PT IN HOSPITAL GOWN, EKG DONE. PT ON CARDIAC AND VITALS MONITOR. PT GIVEN BEDSIDE COMMODE TO VOID. PT ON RA SHE IS SATING 95% ON. WILL CONTINUE TO MONITOR. PT ASKING FOR PAIN MEDS, ERP AWARE.
[2019-03-04] MEDS ORDERED: SODIUM CHLORIDE FLUSH 10ML SYR IVF ONE (11:00)
[2019-03-04] MEDS ORDERED: ACETAMINOPHEN 500 MG TABLET ONE (11:10)
[2019-03-04] MEDS ORDERED: CALCIUM SUPPLEMENT (11:10)
[2019-03-04] MEDS ORDERED: NITROGLYCERIN OINT 2%, 1GM TP ONE ×2 (11:10→11:30)
[2019-03-04] MEDS ORDERED: MEDR2.5T PO (11:10)
[2019-03-04] MEDS ORDERED: LORA-446 PO (11:10)
[2019-03-04 11:17] LABS: BASOPHILS # (AUTO) 0.08 x10^3/uL (0-0.1); BASOPHILS % (AUTO) 1 % (0-1); EOSINOPHILS # (AUTO) 0.06 x10^3/uL (0-0.4); EOSINOPHILS % (AUTO) 1 % (1-7); LYMPHOCYTES # (AUTO) 1.66 x10^3/uL (1-3.4); LYMPHOCYTES % (AUTO) 21 % (22-44); MD NO; MEAN CORPUSCULAR HEMOGLOBIN 31.3 pg (27.0-34.8); MEAN CORPUSCULAR HGB CONC 32.5 g/dL (32.4-35.8); MEAN CORPUSCULAR VOLUME 96.4 fL (80-100); MEAN PLATELET VOLUME 8.3 fL (7.4-10.4); MONOCYTES # (AUTO) 0.49 x10^3/uL (0.2-0.8); MONOCYTES % (AUTO) 6 % (2-9); NEUTROPHILS # (AUTO) 5.61 x10^3/uL (1.8-6.8); NEUTROPHILS % (AUTO) 71 % (42-75); PLATELET COUNT 384 x10^3/uL (130-400); RED BLOOD COUNT 3.47 x10^6/uL (3.82-5.3); RED CELL DISTRIBUTION WIDTH 14.4 % (9.6-15.2)
[2019-03-04 11:29] LABS: ALANINE AMINOTRANSFERASE 67 U/L (12-78); ALBUMIN 3.3 g/dL (3.4-5.0); ANION GAP 5 mmol/L (5-15); CALCIUM 7.9 mg/dL (8.5-10.1); CHLORIDE 111 mmol/L (98-107); CREATININE 0.61 mg/dL (0.55-1.02)
[2019-03-04] MEDS ORDERED: ACETAMINOPHEN 500 MG TABLET PO ONE (11:30)
[2019-03-04 11:33] LABS: ALKALINE PHOSPHATASE 160 U/L (45-117); BILIRUBIN,TOTAL 0.3 mg/dL (0.2-1.0); TOTAL PROTEIN 6.8 g/dL (6.4-8.2); TROPONIN I < 0.015 ng/mL (0.000-0.045)
--- NOTE | 2019-03-04 11:51 | NUR ---
PT STATED SHE IS STILL HAVING CHEST PAIN. PT HAS BEEN MEDICATED FOR C/P. ERP AWARE. PT VSS. WILL CONTINUE TO MONITOR.
--- NOTE | 2019-03-04 13:18 | NUR ---
RECEIVED REPORT FROM SALO MCBRIDE. PLAN OF CARE DISCUSSED.
[2019-03-04] MEDS ORDERED: MORPHINE SULFATE 4 MG/ML, 1ML IVPush PRN (13:30)
--- NOTE | 2019-03-04 13:30 | NUR ---
PATIENT STATES PAIN IS WORSENING FROM 4 TO 7, MD AWARE. NEEDS ADDRESSED.
[2019-03-04] MEDS ORDERED: MORPHINE SULFATE 4 MG/ML, 1ML ONE (13:32)
--- NOTE | 2019-03-04 13:39 | NUR ---
PATIENT MEDICATED PER EMAR, NEEDS ADDRESSED.
--- NOTE | 2019-03-04 14:04 | NUR ---
TASK RN: REPORT GIVEN TO SALO SCHREIBER ON CTELE.
[2019-03-04] MEDS ORDERED: FUROSEMIDE 40 MG/4 ML IV ONE (14:30)
[2019-03-04 14:57] LABS: INTERNATIONAL NORMALIZED RATIO 2.28 (0.93-1.1); PROTHROMBIN TIME 23.2 Seconds (9.6-11.5)
[2019-03-04 14:58] VITALS: BP 129/83
[2019-03-04] MEDS ORDERED: ACETAMINOPHEN 325 MG TABLET PO PRN (15:00)
[2019-03-04] MEDS ORDERED: ONDANSETRON 2MG/ML, 2ML ONE (15:41)
[2019-03-04] MEDS: HYDROcodone/APAP 5/325 TABLET PO PRN ×3 (15:43→21:43)
[2019-03-04] MEDS: POTASSIUM CHLORIDE 20 MEQ TAB.ER.PRT PO SCH ×2 (15:43→20:18)
[2019-03-04] MEDS: ONDANSETRON 2MG/ML, 2ML IVPush PRN ×2 (15:45→21:43)
[2019-03-04] MEDS ORDERED: WARFARIN MECH. VALVE PROTOCOL 2.5 to 3.5 XX PRN (17:30)
[2019-03-04] MEDS ORDERED: WARFARIN 3 MG TABLET PO-COUM ONE (18:30)
[2019-03-04 18:49] VITALS: BP 108/69
[2019-03-04] MEDS: LORazepam 1MG TABLET PO SCH (20:17)
[2019-03-04] MEDS: CARBAMAZEPINE 200 MG TABLET PO SCH (20:18)
[2019-03-04] MEDS: SERTRALINE 100MG TABLET PO SCH (20:18)
[2019-03-04] MEDS: LUBIPROSTONE 24 MCG CAPSULE PO SCH (20:18)
[2019-03-04] MEDS: CARVEDILOL 3.125 MG TABLET PO SCH (20:18)
[2019-03-04] MEDS ORDERED: ATORVASTATIN 40 MG TABLET PO SCH (21:00)
[2019-03-04] MEDS ORDERED: LISINOPRIL 5 MG TABLET PO SCH (21:00)
[2019-03-04] MEDS ORDERED: MAGNESIUM OXIDE 400 MG TABLET PO SCH (21:00)
[2019-03-05] MEDS: HYDROcodone/APAP 5/325 TABLET PO PRN (03:22)
[2019-03-05 03:23] VITALS: BP 102/64
[2019-03-05 05:01] LABS: BASOPHILS # (AUTO) 0.09 x10^3/uL (0-0.1); BASOPHILS % (AUTO) 2 % (0-1); EOSINOPHILS # (AUTO) 0.12 x10^3/uL (0-0.4); EOSINOPHILS % (AUTO) 2 % (1-7); LYMPHOCYTES % (AUTO) 34 % (22-44); MD NO; MEAN CORPUSCULAR HEMOGLOBIN 31.5 pg (27.0-34.8); MEAN CORPUSCULAR HGB CONC 32.8 g/dL (32.4-35.8); MEAN CORPUSCULAR VOLUME 96.1 fL (80-100); MEAN PLATELET VOLUME 8.4 fL (7.4-10.4); MONOCYTES # (AUTO) 0.45 x10^3/uL (0.2-0.8); MONOCYTES % (AUTO) 8 % (2-9); NEUTROPHILS # (AUTO) 2.97 x10^3/uL (1.8-6.8); NEUTROPHILS % (AUTO) 54 % (42-75); PLATELET COUNT 362 x10^3/uL (130-400); RED CELL DISTRIBUTION WIDTH 14.4 % (9.6-15.2)
[2019-03-05 05:03] LABS: INTERNATIONAL NORMALIZED RATIO 2.99 (0.93-1.1); PROTHROMBIN TIME 30.1 Seconds (9.6-11.5)
[2019-03-05 05:11] LABS: ANION GAP 6 mmol/L (5-15); CHLORIDE 106 mmol/L (98-107)
[2019-03-05 05:14] LABS: CREATININE 0.62 mg/dL (0.55-1.02)
[2019-03-05] MEDS ORDERED: LEVOTHYROXINE 125 MCG TABLET PO SCH ×2 (06:00→09:00)
[2019-03-05 07:32] VITALS: BP 99/57
[2019-03-05] MEDS ORDERED: DIGOXIN 0.125 MG TABLET PO SCH (09:00)
[2019-03-05] MEDS ORDERED: FUROSEMIDE 40 MG/4 ML IV SCH (09:00)
[2019-03-05] MEDS ORDERED: SPIRONOLACTONE 25 MG TABLET PO SCH (09:00)
[2019-03-05] MEDS ORDERED: AMIODARONE 200 MG TABLET PO SCH (09:00)
[2019-03-05] MEDS ORDERED: BUPROPION SR 150 MG TABLET PO SCH (09:00)
[2019-03-05] MEDS ORDERED: ESTRADIOL 2 MG TABLET PO SCH (09:00)
[2019-03-05] MEDS ORDERED: LISINOPRIL 5 MG TABLET PO SCH (09:00)
[2019-03-05] MEDS ORDERED: WARFARIN 5 MG TABLET PO-COUM SCH (09:00)
[2019-03-05] MEDS: CARBAMAZEPINE 200 MG TABLET PO SCH (09:24)
[2019-03-05] MEDS: SERTRALINE 100MG TABLET PO SCH (09:24)
[2019-03-05 09:40] VITALS: BP 120/79
[2019-03-05] MEDS: CARVEDILOL 3.125 MG TABLET PO SCH (09:45)
[2019-03-05] MEDS: POTASSIUM CHLORIDE 20 MEQ TAB.ER.PRT PO SCH ×2 (09:45→17:44)
[2019-03-05] MEDS: LUBIPROSTONE 24 MCG CAPSULE PO SCH (09:45)
[2019-03-05] MEDS: LORazepam 1MG TABLET PO SCH (09:46)
[2019-03-05 12:10] VITALS: BP 101/65
[2019-03-05] MEDS ORDERED: WARFARIN 5 MG TABLET PO-COUM ONE (18:00)
== END 2019-03-05 18:14 | disposition home or self-care (01) | DRG 314 ==
LOC: ED 10:52 → EDIP 13:24 → 5SO 14:51
PROVIDERS: ADMIT Internal Medicine Infectious Disease; ATTEND Internal Medicine
DX: I51.81 Takotsubo syndrome (principal); I50.33 Acute on chronic diastolic (congestive) heart failure; E03.9 Hypothyroidism, unspecified; E78.5 Hyperlipidemia, unspecified; F32.9 Major depressive disorder, single episode, unspecified; F41.9 Anxiety disorder, unspecified; I27.20 Pulmonary hypertension, unspecified; I48.0 Paroxysmal atrial fibrillation; J44.9 Chronic obstructive pulmonary disease, unspecified; Z79.01 Long term (current) use of anticoagulants; Z82.49 Family history of ischemic heart disease and other diseases of the circulatory system; Z87.891 Personal history of nicotine dependence; Z95.2 Presence of prosthetic heart valve; I10 Essential (primary) hypertension
CPT/HCPCS: 36415; 71045; 80048; 80053; 80162; 83735; 83880; 84100; 84484; 85025; 85610; 93005; 93306; 96374; 96375; G0378; J1940; J2405; J2270

== ENCOUNTER → 2019-09-18 | Outpatient (CLI) | payer MEDICARE, MEDICAID ==
[~2019-09-18] MED LIST changes: +CALCIUM SUPPLEMENT; -DIGO125T PO; +DIGO125T85 PO; +WARF5TAB PO
[2019-09-18 14:49] LABS: ALANINE AMINOTRANSFERASE 26 U/L (12-78); ALBUMIN 3.8 g/dL (3.4-5.0); ANION GAP 5 mmol/L (5-15); CALCIUM 8.7 mg/dL (8.5-10.1); CHLORIDE 109 mmol/L (98-107)
[2019-09-18 14:59] LABS: ALKALINE PHOSPHATASE 160 U/L (45-117); BILIRUBIN,TOTAL 0.3 mg/dL (0.2-1.0); CHOL/HDL RATIO 3.5; CHOLESTEROL, TOTAL 216 mg/dL (140-239); CREATININE 0.73 mg/dL (0.55-1.02); HDL CHOL % 28 % (28-40); HDL CHOLESTEROL (DIRECT) 61 mg/dL (40-60); LDL CHOLESTEROL,CALCULATED 135 mg/dL (54-169); LDL/HDL RATIO 2.2 (0.5-3.0); TOTAL PROTEIN 7.4 g/dL (6.4-8.2); TRIGLYCERIDES 99 mg/dL (50-200); VLDL CHOLESTEROL 20 mg/dL (0-25)
== END | disposition home or self-care (01) ==
LOC: CFH 08:00
PROVIDERS: ATTEND Internal Medicine Cardiovascular Disease
DX: I45.19 Other right bundle-branch block (principal); E03.9 Hypothyroidism, unspecified; E78.5 Hyperlipidemia, unspecified; I42.8 Other cardiomyopathies
CPT/HCPCS: 36415; 80053; 80061; 84443

== ENCOUNTER 2019-10-30 08:00 | Outpatient (CLI) | payer MEDICARE, MEDICAID ==
[~2019-10-30 08:00] MED LIST changes: -WARF5TAB PO; -WARF5TAB PO-COUM; +WARF5TAB2 PO; +WARF5TAB2 PO-COUM
== END 2019-10-30 23:59 | disposition home or self-care (01) ==
LOC: CFH 08:00
PROVIDERS: ATTEND Internal Medicine Cardiovascular Disease
DX: I08.8 Other rheumatic multiple valve diseases (principal); I42.8 Other cardiomyopathies; I45.19 Other right bundle-branch block
CPT/HCPCS: 93306

== ENCOUNTER 2020-01-22 06:57 | Outpatient (CLI) | payer MEDICARE, MEDICAID ==
[2020-01-22 12:43] LABS: CALCIUM 8.4 mg/dL (8.5-10.1); CHLORIDE 111 mmol/L (98-107)
[2020-01-22 12:53] LABS: ALANINE AMINOTRANSFERASE 45 U/L (12-78); ALBUMIN 3.6 g/dL (3.4-5.0); ALKALINE PHOSPHATASE 178 U/L (45-117); ANION GAP 5 mmol/L (5-15); BILIRUBIN,TOTAL 0.3 mg/dL (0.2-1.0); CHOL/HDL RATIO 3.6; CHOLESTEROL, TOTAL 200 mg/dL (140-239); CREATININE 0.64 mg/dL (0.55-1.02); HDL CHOL % 28 % (28-40); HDL CHOLESTEROL (DIRECT) 55 mg/dL (40-60); LDL CHOLESTEROL,CALCULATED 118 mg/dL (54-169); LDL/HDL RATIO 2.1 (0.5-3.0); TOTAL PROTEIN 7.1 g/dL (6.4-8.2); TRIGLYCERIDES 136 mg/dL (50-200); VLDL CHOLESTEROL 27 mg/dL (0-25)
== END 2020-01-22 23:59 | disposition home or self-care (01) ==
LOC: CFH 06:57
PROVIDERS: ATTEND Physician Assistant Medical
DX: E03.9 Hypothyroidism, unspecified (principal); E78.5 Hyperlipidemia, unspecified; I42.8 Other cardiomyopathies; I42.9 Cardiomyopathy, unspecified; I45.10 Unspecified right bundle-branch block; I47.1 Supraventricular tachycardia; I48.0 Paroxysmal atrial fibrillation; M79.7 Fibromyalgia; Z79.01 Long term (current) use of anticoagulants
CPT/HCPCS: 36415; 80053; 80061; 83880

== ENCOUNTER 2020-01-25 10:16 | Emergency (ER) | payer MEDICARE, MEDICAID ==
[~2020-01-25] VITALS: Ht 154.9 cm; Wt 56.6 kg
[2020-01-25] MEDS ORDERED: ONDANSETRON 2MG/ML, 2ML ONE (10:45)
[2020-01-25] MEDS ORDERED: MORPHINE SULFATE 4 MG/ML, 1ML ONE ×2 (10:45→12:59)
[2020-01-25] MEDS ORDERED: ONDANSETRON 2MG/ML, 2ML IVPush ONE (11:00)
[2020-01-25] MEDS: MORPHINE SULFATE 4 MG/ML, 1ML IVPush PRN ×2 (11:02→13:06)
--- NOTE | 2020-01-25 11:11 | NUR ---
Pt here for CP, nausea, abdominal bloating and constipation.
--- NOTE | 2020-01-25 11:12 | NUR ---
Medicated for nausea and pain
[2020-01-25 11:19] LABS: BASOPHILS # (AUTO) 0.02 x10^3/uL (0-0.1); BASOPHILS % (AUTO) 0 % (0-1); EOSINOPHILS # (AUTO) 0.07 x10^3/uL (0-0.4); EOSINOPHILS % (AUTO) 1 % (1-7); LYMPHOCYTES # (AUTO) 1.39 x10^3/uL (1-3.4); LYMPHOCYTES % (AUTO) 17 % (22-44); MD NO; MEAN CORPUSCULAR HEMOGLOBIN 31.2 pg (27.0-34.8); MEAN CORPUSCULAR HGB CONC 32.5 g/dL (32.4-35.8); MEAN PLATELET VOLUME 8.6 fL (7.4-10.4); MONOCYTES # (AUTO) 0.42 x10^3/uL (0.2-0.8); MONOCYTES % (AUTO) 5 % (2-9); NEUTROPHILS # (AUTO) 6.08 x10^3/uL (1.8-6.8); NEUTROPHILS % (AUTO) 76 % (42-75); PLATELET COUNT 267 x10^3/uL (130-400); RED BLOOD COUNT 3.96 x10^6/uL (3.82-5.3); RED CELL DISTRIBUTION WIDTH 14.8 % (9.6-15.2)
[2020-01-25 11:28] LABS: ALBUMIN 3.7 g/dL (3.4-5.0); CHLORIDE 108 mmol/L (98-107)
[2020-01-25 11:37] LABS: ALANINE AMINOTRANSFERASE 45 U/L (12-78); ALKALINE PHOSPHATASE 212 U/L (45-117); ANION GAP 7 mmol/L (5-15); BILIRUBIN,TOTAL 0.4 mg/dL (0.2-1.0); CALCIUM 8.7 mg/dL (8.5-10.1); CREATININE 0.69 mg/dL (0.55-1.02); TOTAL PROTEIN 7.5 g/dL (6.4-8.2); TROPONIN I < 0.015 ng/mL (0.000-0.045)
[2020-01-25 11:45] LABS: INTERNATIONAL NORMALIZED RATIO 2.25 (0.93-1.1); PROTHROMBIN TIME 23.4 Seconds (9.6-11.5)
--- NOTE | 2020-01-25 11:58 | NUR ---
Pt states some pain improvement 08/02, but still states feeling "miserable". Pt updated on POC. VS updated
[2020-01-25] MEDS ORDERED: SODIUM CHLORIDE FLUSH 10ML SYR IVF ONE (12:00)
--- NOTE | 2020-01-25 12:30 | NUR ---
Pt to CT
[2020-01-25] MEDS ORDERED: OMNIPAQUE 350 MG/ML, 100ML BOTTLE ONE (12:39)
[2020-01-25 14:57] VITALS: BP 131/85
== END 2020-01-25 14:59 | disposition home or self-care (01) ==
LOC: ED 10:46
DX: K56.0 Paralytic ileus (principal); R10.84 Generalized abdominal pain; R11.10 Vomiting, unspecified; R07.89 Other chest pain; I44.5 Left posterior fascicular block; Z88.9 Allergy status to unspecified drugs, medicaments and biological substances; Z79.899 Other long term (current) drug therapy
CPT/HCPCS: 36415; 71045; 74177; 80053; 83690; 83880; 84484; 85025; 85610; 93005; 96374; 96375; 96376; 99285; J2270; J2405; Q9967

== ENCOUNTER 2020-06-20 15:54 | Inpatient (IN) | payer MEDICARE, MEDICAID ==
[~2020-06-20] VITALS: Ht 154.9 cm; Wt 56.8 kg
[2020-06-20 16:44] LABS: BASOPHILS % (AUTO) 1 % (0-1); EOSINOPHILS % (AUTO) 1 % (1-7); LYMPHOCYTES % (AUTO) 20 % (22-44); MD NO; MEAN CORPUSCULAR HEMOGLOBIN 31.3 pg (27.0-34.8); MEAN CORPUSCULAR HGB CONC 32.8 g/dL (32.4-35.8); MEAN PLATELET VOLUME 9.1 fL (7.4-10.4); MONOCYTES % (AUTO) 4 % (2-9); NEUTROPHILS % (AUTO) 75 % (42-75); PLATELET COUNT 292 x10^3/uL (130-400); RED BLOOD COUNT 4.84 x10^6/uL (3.82-5.3)
[2020-06-20 16:57] LABS: ALBUMIN 4.1 g/dL (3.4-5.0); ANION GAP 13 mmol/L (5-15); CALCIUM 9.1 mg/dL (8.5-10.1); CHLORIDE 103 mmol/L (98-107); CREATININE 1.39 mg/dL (0.55-1.02)
[2020-06-20] MEDS ORDERED: ONDANSETRON 2MG/ML, 2ML IVPush ONE (17:00)
[2020-06-20 17:05] LABS: TROPONIN I 0.602 ng/mL (0.000-0.045)
[2020-06-20 17:06] LABS: INTERNATIONAL NORMALIZED RATIO 4.98 (0.93-1.1)
[2020-06-20] MEDS ORDERED: ONDANSETRON 2MG/ML, 2ML ONE (17:11)
[2020-06-20] MEDS ORDERED: MORPHINE SULFATE 4 MG/ML, 1ML ONE ×2 (17:11→18:46)
[2020-06-20] MEDS: MORPHINE SULFATE 4 MG/ML, 1ML IVPush PRN ×2 (17:15→18:48)
[2020-06-20 17:21] LABS: PROTHROMBIN TIME 51.6 Seconds (9.6-11.5)
--- NOTE | 2020-06-20 17:42 | NUR ---
pt placed on nc 02 at 6 lpm post nuclear medicine medical director
[2020-06-20] MEDS ORDERED: SODIUM CHLORIDE FLUSH 10ML SYR IVF PRN (18:30)
[2020-06-20 20:00] VITALS: BP 106/78
[2020-06-20] MEDS ORDERED: DOCUSATE 100 MG CAPSULE PO PRN (20:00)
[2020-06-20] MEDS ORDERED: TEMAZEPAM 15 MG CAPSULE PO PRN (20:00)
[2020-06-20] MEDS ORDERED: MELATONIN 5 MG TABLET PO PRN (20:00)
[2020-06-20] MEDS ORDERED: hydrALAzine 20 MG/ML, 1ML IVPush PRN (20:00)
[2020-06-20] MEDS ORDERED: LIDODERM 5% PATCH TD PRN (20:00)
[2020-06-20] MEDS ORDERED: ACETAMINOPHEN 325 MG TABLET PO PRN (20:00)
[2020-06-20] MEDS: INSULIN LISPRO 100 UNITS/ML, PEN SQ-INSULIN SCH (21:00)
[2020-06-20] MEDS: morphine SULFATE 10 MG/ML, 1ML IVPush PRN (22:08)
[2020-06-20] MEDS ORDERED: WARF2.5T32 PO (22:19)
[2020-06-20] MEDS ORDERED: NITROGLYCERIN 0.4 MG/SPRAY SL PRN (22:30)
[2020-06-20] MEDS ORDERED: NITROGLYCERIN 0.4 MG BOTTLE (25 TABS) SL PRN (22:30)
[2020-06-20] MEDS ORDERED: LEVO137C4 PO (22:40)
[2020-06-20] MEDS ORDERED: LURA120T PO (22:40)
[2020-06-20] MEDS ORDERED: ATOR40TA78 PO (22:40)
[2020-06-20] MEDS ORDERED: CYCL10TA2 PO (22:59)
[2020-06-20] MEDS ORDERED: WARFARIN MECH. VALVE PROTOCOL 2.5 to 3.5 XX PRN (23:00)
[2020-06-20] MEDS: ONDANSETRON 2MG/ML, 2ML IVPush PRN (23:06)
[2020-06-20 23:09] VITALS: BP 106/78
[2020-06-20] MEDS: CARVEDILOL 3.125 MG TABLET PO SCH (23:53)
[2020-06-21] MEDS: ATORVASTATIN 40 MG TABLET PO SCH ×2 (00:04→20:15)
[2020-06-21] MEDS: LURASIDONE 20 MG TABLET PO SCH ×2 (00:04→20:15)
[2020-06-21] MEDS: BUSPIRONE 10 MG TABLET PO SCH ×3 (00:04→20:15)
[2020-06-21] MEDS: CYCLOBENZAPRINE 10 MG TABLET PO SCH ×2 (00:05→20:14)
[2020-06-21] MEDS: FUROSEMIDE 40 MG/4 ML IV SCH ×2 (00:05→17:24)
[2020-06-21] MEDS: LORazepam 1MG TABLET PO SCH ×2 (00:05→20:15)
[2020-06-21] MEDS: SERTRALINE 100MG TABLET PO SCH ×3 (00:05→20:16)
[2020-06-21] MEDS: LUBIPROSTONE 24 MCG CAPSULE PO SCH ×2 (00:09→20:14)
[2020-06-21] MEDS: CARBAMAZEPINE 200 MG TABLET PO SCH ×3 (00:09→20:14)
[2020-06-21 00:21] VITALS: BP 123/92
[2020-06-21] MEDS ORDERED: PHARMACY MAY ADJ FOR RENAL FX MC PRN (02:00)
[2020-06-21] MEDS: morphine SULFATE 10 MG/ML, 1ML IVPush PRN ×5 (02:34→22:40)
[2020-06-21 02:35] VITALS: BP 139/104
[2020-06-21 02:42] VITALS: BP 130/94
[2020-06-21 05:10] LABS: BASOPHILS % (AUTO) 0 % (0-1); EOSINOPHILS % (AUTO) 0 % (1-7); LYMPHOCYTES % (AUTO) 10 % (22-44); MEAN CORPUSCULAR HEMOGLOBIN 31.3 pg (27.0-34.8); MEAN CORPUSCULAR HGB CONC 33.1 g/dL (32.4-35.8); MEAN PLATELET VOLUME 9.3 fL (7.4-10.4); MONOCYTES % (AUTO) 5 % (2-9); NEUTROPHILS % (AUTO) 85 % (42-75); PLATELET COUNT 270 x10^3/uL (130-400); RED BLOOD COUNT 4.65 x10^6/uL (3.82-5.3); RED CELL DISTRIBUTION WIDTH 14.5 % (9.6-15.2)
[2020-06-21 05:13] LABS: ANION GAP 11 mmol/L (5-15); CALCIUM 8.7 mg/dL (8.5-10.1); CHLORIDE 100 mmol/L (98-107); CREATININE 1.43 mg/dL (0.55-1.02)
[2020-06-21 05:29] LABS: CHOLESTEROL, TOTAL 219 mg/dL (140-239); HDL CHOL % 34 % (28-40); HDL CHOLESTEROL (DIRECT) 74 mg/dL (40-60); LDL CHOLESTEROL,CALCULATED 126 mg/dL (54-169); LDL/HDL RATIO 1.7 (0.5-3.0); TRIGLYCERIDES 96 mg/dL (50-200); VLDL CHOLESTEROL 19 mg/dL (0-25)
[2020-06-21 05:54] LABS: MD SCAN
[2020-06-21 07:59] VITALS: BP 111/79
[2020-06-21] MEDS: INSULIN LISPRO 100 UNITS/ML, PEN SQ-INSULIN SCH ×4 (08:28→20:24)
[2020-06-21] MEDS ORDERED: REGADENOSON 0.4 MG/5 ML SYRINGE ONE (08:45)
[2020-06-21] MEDS: ESTRADIOL 2 MG TABLET PO SCH (09:00)
[2020-06-21] MEDS: MEDROXYPROGESTERONE ACETATE 2.5 MG TABLET PO SCH (09:00)
[2020-06-21] MEDS: ONDANSETRON 2MG/ML, 2ML IVPush PRN ×2 (11:27→17:44)
[2020-06-21] MEDS: DIGOXIN 0.125 MG TABLET PO SCH (11:28)
[2020-06-21] MEDS: LEVOTHYROXINE 137 MCG TABLET PO SCH (11:28)
[2020-06-21] MEDS: CARVEDILOL 3.125 MG TABLET PO SCH ×2 (11:29→20:15)
[2020-06-21] MEDS: LISINOPRIL 5 MG TABLET PO SCH (11:30)
[2020-06-21] MEDS: AMIODARONE 200 MG TABLET PO SCH (11:31)
[2020-06-21] MEDS: SPIRONOLACTONE 25 MG TABLET PO SCH (11:31)
[2020-06-21] MEDS: POTASSIUM CHLORIDE 20 MEQ TAB.ER.PRT PO SCH (11:31)
[2020-06-21] MEDS: BUPROPION SR 100 MG TABLET PO SCH (11:33)
[2020-06-21] MEDS ORDERED: FUROSEMIDE 40 MG/4 ML IV ONE (12:00)
[2020-06-21] MEDS ORDERED: POTASSIUM CHLORIDE 20 MEQ TAB.ER.PRT PO ONE (12:00)
[2020-06-21 12:16] LABS: TROPONIN I 0.914 ng/mL (0.000-0.045)
[2020-06-21 12:54] VITALS: BP 120/86
[2020-06-21 16:22] LABS: INTERNATIONAL NORMALIZED RATIO 5.54 (0.93-1.1); PROTHROMBIN TIME 57.3 Seconds (9.6-11.5)
[2020-06-21 17:26] LABS: FREE T4 (FREE THYROXINE) 1.49 ng/dL (0.76-1.46)
[2020-06-21 20:12] VITALS: BP 103/71
[2020-06-22] MEDS: morphine SULFATE 10 MG/ML, 1ML IVPush PRN ×2 (02:47→06:39)
[2020-06-22 02:51] VITALS: BP 99/68
[2020-06-22] MEDS: ONDANSETRON 2MG/ML, 2ML IVPush PRN ×2 (03:13→09:32)
[2020-06-22 05:39] LABS: ALBUMIN 3.5 g/dL (3.4-5.0); ANION GAP 9 mmol/L (5-15); CALCIUM 8.6 mg/dL (8.5-10.1); CHLORIDE 100 mmol/L (98-107); CREATININE 0.76 mg/dL (0.55-1.02)
[2020-06-22 05:53] LABS: INTERNATIONAL NORMALIZED RATIO 2.78 (0.93-1.1); PROTHROMBIN TIME 29.2 Seconds (9.6-11.5)
[2020-06-22 06:40] VITALS: BP 116/77
[2020-06-22] MEDS: INSULIN LISPRO 100 UNITS/ML, PEN SQ-INSULIN SCH (07:00)
[2020-06-22] MEDS: ESTRADIOL 2 MG TABLET PO SCH (08:56)
[2020-06-22] MEDS: MEDROXYPROGESTERONE ACETATE 2.5 MG TABLET PO SCH ×2 (08:57→09:00)
[2020-06-22] MEDS ORDERED: LIOTHYRONINE 5 MCG TABLET PO SCH (09:00)
[2020-06-22] MEDS ORDERED: MEDROXYPROGESTERONE ACETATE 5 MG TABLET ONE (09:29)
[2020-06-22] MEDS: LEVOTHYROXINE 137 MCG TABLET PO SCH (09:32)
[2020-06-22] MEDS: FUROSEMIDE 40 MG/4 ML IV SCH (09:32)
[2020-06-22] MEDS: AMIODARONE 200 MG TABLET PO SCH (09:33)
[2020-06-22] MEDS: BUSPIRONE 10 MG TABLET PO SCH (09:33)
[2020-06-22] MEDS: DIGOXIN 0.125 MG TABLET PO SCH (09:33)
[2020-06-22] MEDS: CARBAMAZEPINE 200 MG TABLET PO SCH (09:33)
[2020-06-22] MEDS: CARVEDILOL 3.125 MG TABLET PO SCH (09:34)
[2020-06-22] MEDS: SPIRONOLACTONE 25 MG TABLET PO SCH (09:34)
[2020-06-22] MEDS: BUPROPION SR 100 MG TABLET PO SCH (09:34)
[2020-06-22] MEDS: POTASSIUM CHLORIDE 20 MEQ TAB.ER.PRT PO SCH (09:34)
[2020-06-22] MEDS: LISINOPRIL 5 MG TABLET PO SCH (09:34)
[2020-06-22] MEDS: SERTRALINE 100MG TABLET PO SCH (09:35)
[2020-06-22] MEDS ORDERED: OXYC-307 PO (10:22)
[2020-06-22] MEDS: OXYcodone/APAP 10/325MG TABLET PO PRN ×2 (11:29→17:52)
[2020-06-22 12:28] VITALS: BP 109/71
[2020-06-22] MEDS ORDERED: LIOT5TAB10 PO (16:32)
[2020-06-22] MEDS ORDERED: WARFARIN 5 MG TABLET PO-COUM ONE (18:00)
== END 2020-06-22 18:15 | disposition home or self-care (01) | DRG 280 ==
LOC: ED 18:57 → EDIP 19:26 → 5SO 19:34
PROVIDERS: ADMIT Family Medicine; ATTEND Family Medicine
PROC: C23GYZZ Positron Emission Tomographic (PET) Imaging of Myocardium using Other Radionuclide (ICD-10-PCS; principal; 2020-06-21)
DX: I21.4 Non-ST elevation (NSTEMI) myocardial infarction (principal); I50.43 Acute on chronic combined systolic (congestive) and diastolic (congestive) heart failure; N17.0 Acute kidney failure with tubular necrosis; J96.10 Chronic respiratory failure, unspecified whether with hypoxia or hypercapnia; D68.69 Other thrombophilia; G90.50 Complex regional pain syndrome I, unspecified; I27.20 Pulmonary hypertension, unspecified; I34.0 Nonrheumatic mitral (valve) insufficiency; I34.1 Nonrheumatic mitral (valve) prolapse; I45.10 Unspecified right bundle-branch block; I48.0 Paroxysmal atrial fibrillation; J44.9 Chronic obstructive pulmonary disease, unspecified; T45.515A Adverse effect of anticoagulants, initial encounter; F41.9 Anxiety disorder, unspecified; G47.00 Insomnia, unspecified; I00 Rheumatic fever without heart involvement; I20.9 Angina pectoris, unspecified; I49.5 Sick sinus syndrome; E03.9 Hypothyroidism, unspecified; E11.65 Type 2 diabetes mellitus with hyperglycemia; E78.5 Hyperlipidemia, unspecified; E86.0 Dehydration; F32.9 Major depressive disorder, single episode, unspecified; F43.10 Post-traumatic stress disorder, unspecified; I11.0 Hypertensive heart disease with heart failure; Z79.01 Long term (current) use of anticoagulants; Z82.49 Family history of ischemic heart disease and other diseases of the circulatory system; Z87.891 Personal history of nicotine dependence; Z95.2 Presence of prosthetic heart valve; Z99.81 Dependence on supplemental oxygen; Z88.8 Allergy status to other drugs, medicaments and biological substances; Z88.2 Allergy status to sulfonamides; Z88.5 Allergy status to narcotic agent; Z79.899 Other long term (current) drug therapy; Z79.891 Long term (current) use of opiate analgesic; Y92.89 Other specified places as the place of occurrence of the external cause
CPT/HCPCS: 36415; 71045; 71046; 78452; 80048; 80061; 80162; 82040; 82962; 83735; 83880; 84100; 84439; 84443; 84481; 84484; 85025; 85610; 85730; 93005; 93017; 93306; 96374; 96375; 96376; 99291; G0378; J1940; J2405; J2785; A9502; J1815; J2270

== ENCOUNTER → 2020-10-01 | Outpatient (CLI) | payer MEDICARE, MEDICAID ==
[~2020-10-01] MED LIST changes: +CYCL10TA2 PO; +LEVO137C4 PO; +LIOT5TAB10 PO; +LURA120T PO; +OXYC-307 PO; +WARF2.5T32 PO
== END | disposition home or self-care (01) ==
LOC: CFH 08:47
PROVIDERS: ATTEND Nurse Practitioner Family
DX: I08.2 Rheumatic disorders of both aortic and tricuspid valves (principal); I42.8 Other cardiomyopathies; E11.9 Type 2 diabetes mellitus without complications; I48.91 Unspecified atrial fibrillation; F43.10 Post-traumatic stress disorder, unspecified; Z95.4 Presence of other heart-valve replacement; Z95.0 Presence of cardiac pacemaker
CPT/HCPCS: 93306

== ENCOUNTER 2020-12-17 07:40 | Outpatient (CLI) | payer MEDICARE, MEDICAID ==
[2020-12-17 08:18] LABS: ALBUMIN 3.8 g/dL (3.4-5.0); ANION GAP 8 mmol/L (5-15); CALCIUM 8.5 mg/dL (8.5-10.1); CHLORIDE 109 mmol/L (98-107)
[2020-12-17 08:24] LABS: ALANINE AMINOTRANSFERASE 41 U/L (12-78); ALKALINE PHOSPHATASE 190 U/L (45-117); BILIRUBIN,TOTAL 0.4 mg/dL (0.2-1.0); CREATININE 0.59 mg/dL (0.55-1.02); TOTAL PROTEIN 7.7 g/dL (6.4-8.2)
== END 2020-12-17 23:59 | disposition home or self-care (01) ==
LOC: LAB 07:40
PROVIDERS: ATTEND Nurse Practitioner Family
DX: D68.69 Other thrombophilia (principal); E03.9 Hypothyroidism, unspecified; A41.9 Sepsis, unspecified organism; E11.40 Type 2 diabetes mellitus with diabetic neuropathy, unspecified; E11.59 Type 2 diabetes mellitus with other circulatory complications; E78.5 Hyperlipidemia, unspecified; E87.1 Hypo-osmolality and hyponatremia; E87.6 Hypokalemia; F32.9 Major depressive disorder, single episode, unspecified; F41.1 Generalized anxiety disorder
CPT/HCPCS: 36415; 80053; 83880